=== PATIENT | male | born 1995 | race Two or more races ===

== ENCOUNTER 2024-10-02 08:22 | Inpatient (IN) | payer BC, OTHER ==
[~2024-10-02] VITALS: Ht 182.9 cm; Wt 94.2 kg
--- NOTE | 2024-10-02 08:51 | ED.PDOC ---
General HPI Comments This is a 29 year old male REINIER presenting to the ED with chief complaint of right flank pain. Patient reports that he has been experiencing right sided flank pain since this morning with associated nausea. Patient states he had experienced some hematuria about a month ago, but it self resolved. Patient denies any vomiting, dysuria, hematuria, fever, chills, or abdominal pain. Chief Complaint: Flank Pain Time Seen by MD: 08:51 Reviewed notes: Nurses Notes, Batch Attendant Notes, Medications, Allergies Allergies: Coded Allergies: NO KNOWN ALLERGIES (Unverified , 10/02/24) Information Source: Patient, Emergency Med Personnel Mode of Arrival: EMS Severity: Moderate Inability to void: None Timing: Hours Duration: Since onset Prehospital treatment: None Onset: Spontaneous History of: None Location: (R) Flank Penile discharge: None associated signs and symptoms: Flank Pain Past Medical History PAST MEDICAL HISTORY: Denies Surgical History: Denies all surgeries Family History Family History: Reviewed,noncontributory to illness Social History Smoker: Non-Smoker Alcohol: Denies ETOH Use Drugs: Denies Drug Use Lives In: Home Constitutional: denies: chills, diaphoresis, fatigue, fever, malaise, sweats, weakness, others EENTM: denies: blurred vision, double vision, ear bleeding, ear discharge, ear drainage, ear pain, ear ringing, eye pain, eye redness, hearing loss, mouth pain, mouth swelling, nasal discharge, nose bleeding, nose congestion, nose pain, photophobia, tearing, throat pain, throat swelling, voice changes, others Respiratory: denies: cough, hemoptysis, orthopnea, SOB at rest, shortness of breath, SOB with excertion, stridor, wheezing, others Cardiovascular: denies: chest pain, dizzy spells, diaphoresis, Dyspnea on exertion, edema, irregular heart beat, left arm pain, lightheadedness, palpitations, PND, syncope, others Gastrointestinal: reports: nausea; denies: abdomen distended, abdominal pain, blood streaked bowels, constipated, diarrhea, dysphagia, difficulty swallowing, hematemesis, melena, poor appetite, poor fluid intake, rectal bleeding, rectal pain, vomiting, others Genitourinary: reports: flank pain; denies: burning, dysuria, frequency, hematuria, incontinence, penile discharge, penile sore, pain, testicle pain, testicle swelling, urgency, others Neurological: denies: dizziness, fainting, headache, left sided numbness, left sided weakness, numbness, paresthesia, pre-existing deficit, right sided numbness, right sided weakness, seizure, speech problems, tingling, tremors, weakness, others Musculoskeletal: denies: back pain, gout, joint pain, joint swelling, muscle pain, muscle stiffness, neck pain, others Integumetry: denies: bruises, change in color, change in hair/nails, dryness, laceration, lesions, lumps, rash, wounds, others Allergic/Immunocompromised: denies: Difficulty Healing, Frequent Infections, Hives, Itching, others Hematologic/Lymphatic: denies: anemia, blood clots, easy bleeding, easy bruising, swollen glands, others Endocrine: denies: excessive hunger, excessive sweating, excessive thirst, excessive urination, flushing, intolerance to cold, intolerance to heat, unexplained weight gain, unexplained weight loss, others Psychiatric: denies: anxiety, bipolar disorder, depression, hopeless, panic disorder, schizophrenia, sleepless, suicidal, others All Other Systems: Reviewed and Negative Physical Exam General Appearance: Moderate Distress, Normal HEENT: Normal ENT Inspection, Pharynx Normal, TMs Normal Neck: Full Range of Motion, Non-Tender, Normal, Normal Inspection Respiratory: Chest Non-Tender, Lungs Clear, No Accessory Muscle Use, No Respiratory Distress, Normal Breath Sounds Cardiovascular: No Edema, No JVD, No Murmur, No Gallop, Normal Peripheral Pulses, Regular Rate/Rhythm Breast Exam: Deferred Gastrointestinal: No Organomegaly, Non Tender, No Pulsatile Mass, Normal Bowel Sounds, Soft Genitalia: Deferred Pelvic: Deferred Rectal: Deferred Extremities: No calf tenderness, Normal capillary refill, Normal inspection, Normal range of motion, Non-tender, No pedal edema Musculoskeletal : Apperance: Normal Neurologic: Alert, 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 Was a procedure done?: No Differential Diagnosis Kidney stone (Female): N/A Kidney stone (Male): Pyelonephritis, Renal failure, Strain, Urinary obstruction, Urolithiasis, Urinary tract infection X-Ray, Labs, Meds, VS Vital Signs Date Time Temp Pulse Resp B/P (MAP) Pulse Ox O2 Delivery O2 Flow Rate FiO2 10/02/24 09:11 74 20 95 Room Air* 0 21 10/02/24 08:34 98.9 68 14 120/78 100 98.9 Lab Test 10/02/24 08:54 10/02/24 08:46 Range/Units Urine Color Light-orange Yellow Urine Clarity Turbid H Clear Urine pH 5.5 5.0-9.0 Urine Specific [place] 1.027 1.001-1.035 Urine Protein 1+ H Negative Urine Ketones Negative Negative Urine Blood 3+ H Negative /uL Urine Nitrite Negative Negative Urine Bilirubin Negative Negative Urine Urobilinogen Normal Negative mg/dL Urine Leukocyte Esterase Trace Negative /uL Urine RBC 2435 0 - 3 /hpf Urine Microscopic WBC 16 H 0-3 /HPF Urine Squamous Epithelial Cells None seen <5 /hpf Urine Bacteria None seen None Seen /hpf Urine Mucus Few None Seen Urine Yeast (Budding) Moderate None Seen /hpf Urine Glucose Normal Normal mg/dL White Blood Count 10.0 4.4-10.8 10^3/uL Red Blood Count 5.31 4.5-5.90 10^6/uL Hemoglobin 16.2 13.5-17.5 g/dL Hematocrit 46.1 41.0-53.0 % Mean Corpuscular Volume 86.8 80.0-100.0 fL Mean Corpuscular Hemoglobin 30.4 28.0-32.0 pg Mean Corpuscular Hemoglobin Concent 35.1 32.0-36.0 g/dL Red Cell Distribution Width 13.1 11.8-14.3 % Platelet Count 278 140-450 10^3/uL Mean Platelet Volume 7.5 6.9-10.8 fL Neutrophils (%) (Auto) 62.6 37.0-80.0 % Lymphocytes (%) (Auto) 18.8 10.0-50.0 % Monocytes (%) (Auto) 4.1 0.0-12.0 % Eosinophils (%) (Auto) 14.2 H 0.0-7.0 % Basophils (%) (Auto) 0.3 0.0-2.0 % Neutrophils # (Auto) 6.3 1.6-8.6 10 ^3/uL Lymphocytes # (Auto) 1.9 0.4-5.4 10 ^3/uL Monocytes # (Auto) 0.4 0-1.3 10 ^3/uL Eosinophils # (Auto) 1.4 H 0-0.8 10 ^3/uL Basophils # (Auto) 0 0-0.2 10 ^3/uL Nucleated Red Blood Cells 0.1 % Sodium Level 142 136-145 mmol/L Potassium Level 4.3 3.5-5.1 mmol/L Chloride Level 106 98-107 mmol/L Carbon Dioxide Level 29 20-31 mmol/L Anion Gap 7 5-15 Blood Urea Nitrogen 13 9-23 mg/dL Creatinine 0.98 0.700-1.30 mg/dL Glomerular Filtration Rate Calc 107 >90 mL/min BUN/Creatinine Ratio 13.3 10.0-20.0 Serum Glucose 97 74-106 mg/dL Calcium Level 10.4 8.7-10.4 mg/dL Current Medications Medications (Trade) Dose Ordered Sig/Brayan Route Start Time Stop Time Status Last Admin Ondansetron HCl (Zofran) 4 mg ONCE ONCE IV 10/02/24 08:45 10/02/24 08:46 DC 10/02/24 09:09 Sodium Chloride 1,000 ml @ 1,000 mls/hr Q1H ONCE IVB 10/02/24 08:45 10/02/24 09:44 DC 10/02/24 09:10 Ketorolac Tromethamine (Toradol Injection) 30 mg ONCE ONCE IV 10/02/24 08:45 10/02/24 08:46 DC 10/02/24 09:09 Patient alert. Complaining of flank pain. Vitals stable. Answering questions. Urinalysis shows hematuria. Possible kidney stone. Establish intravenous access. Was given fluids. Was given pain medication. Was given Lasix pain Explained to the patient. Continue monitoring. Time of 1ST Reevaluation: 09:50 Reevaluation 1ST: Unchanged Patient Education/Counseling: Diagnosis, Treatment Family Education/Counseling: No Family Present SEPSIS Sepsis Screen Date sepsis recognized/suspect: Oct 02, 2024 Time Sepsis recognized/suspect: 824 Recent Procedure: No On Antibiotic Therapy: No Respiratory Rate >20: No Heart Rate >90: No Temp<36 C (96.8 F) or >38.3 C: No SBP <90 or MAP <65 mmHG: No New Acute Mental Status Change: No Is the patient on CPAP, BIPAP,: No Physician Orders Ct Ab Pel Wo Con-No Oral Or Iv (10/02/24 10:40) Vital Signs Date Time Temp Pulse Resp B/P (MAP) Pulse Ox O2 Delivery O2 Flow Rate FiO2 10/02/24 09:11 74 20 95 Room Air* 0 21 10/02/24 08:34 98.9 68 14 120/78 100 98.9 Laboratory Tests Test 10/02/24 08:46 White Blood Count 10.0 10^3/uL (4.4-10.8) Medications Medications Dose Ordered Sig/Brayan Route Start Time Stop Time Status Last Admin Dose Admin Ketorolac Tromethamine 30 mg ONCE ONCE IV 10/02/24 08:45 10/02/24 08:46 DC 10/02/24 09:09 Ondansetron HCl 4 mg ONCE ONCE IV 10/02/24 08:45 10/02/24 08:46 DC 10/02/24 09:09 Sodium Chloride 1,000 ml @ 1,000 mls/hr Q1H ONCE IVB 10/02/24 08:45 10/02/24 09:44 DC 10/02/24 09:10 Departure 1 Departure Time of Disposition: 10:52 Impression: Primary Impression: Kidney stone Disposition: ADMITTED INPATIENT Admit to: Med Surg Condition: Guarded Critical Care Note Critical Care Time?: Yes (90 min-critical care time only) Critical care comment: Monitoring pain Stability Stability form required: No Heart Score Heart Score: Heart Score Response (Comments) Value History N/A 0 EKG N/A 0 Age N/A 0 Risk Factors N/A 0 Troponin N/A 0 Total 0 I personally scribed for SUMAN PEREZ MD ([email or web address]) on 10/02/24 at 08:51. Electronically submitted by Kwaku Akbar ([email or web address]). SUMAN PEREZ MD Oct 02, 2024 08:51
[2024-10-02 09:08] LABS: Hematocrit 46.1 % (41.0-53.0); Hemoglobin 16.2 g/dL (13.5-17.5); Mean Corpuscular Hemoglobin 30.4 pg (28.0-32.0); Mean Corpuscular Volume 86.8 fL (80.0-100.0); Nucleated Red Blood Cells % 0.1 %
[2024-10-02] MEDS: ONDANSETRON HCL 4 MG/2 ML VIAL IV ONE (09:09)
[2024-10-02] MEDS: KETOROLAC TROMETH 30 MG/ML 1ML VIAL IV ONE ×2 (09:09→18:00)
[2024-10-02] MEDS: SODIUM CHLORIDE 0.9% 1,000 ML IVB ONE (09:10)
[2024-10-02 09:11] VITALS: PULSE 74; RESP 20; O2SAT 95
[2024-10-02 09:20] LABS: Chloride 106 mmol/L (98-107); Potassium 4.3 mmol/L (3.5-5.1); Sodium 142 mmol/L (136-145)
[2024-10-02 09:21] LABS: Anion Gap 7 (5-15); Calcium 10.4 mg/dL (8.7-10.4); Carbon Dioxide 29 mmol/L (20-31)
[2024-10-02 09:26] LABS: BUN/Creatinine Ratio 13.3 (10.0-20.0); Blood Urea Nitrogen 13 mg/dL (9-23); Glucose 97 mg/dL (74-106)
[2024-10-02 09:54] LABS: Urine Budding Yeast MODERATE /hpf (None Seen); Urine Protein, UAD 1+ (Negative)
--- NOTE | 2024-10-02 11:16 | DVH ---
CT CT AB PEL WO CON-NO ORAL OR IV INDICATION: stone EXAM DATE: 10/02/2024 10:40 AM COMPARISON: None RADIATION DOSE: CTDIvol: 11.76 mGy, DLP: 734.97 mGy*cm PROCEDURE: Helical CT images were obtained of the abdomen and pelvis without IV contrast Sagittal and coronal reconstructions are provided. ORAL CONTRAST: None. ADDITIONAL IMAGES / REFORMATS: None All C T scans at this medical facility are performed using dose modulation techniques as appropriate to a p erformed exam including the following: Automated exposure control was utilized; adjustment of the MA and/or KV according to patient size; and use of iterative reconstruction technique. FINDINGS: LUNG BASE: Normal. LIVER: Normal. GALLBLADDER AND BILIARY TREE: No calcified gallstones. Normal caliber wall. No intra- or extrahepatic biliary ductal dilation. PANCREAS: Normal. SPLEEN: Normal. BOWEL: Normal. Normal appendix. ADRENALS: Normal. KIDNEYS AND URETER: 7 mm right mid ureteral kidney stone with mild right hydronephrosis. Additional p unctate nonobstructive kidney stones are seen. BLADDER: Normal. REPRODUCTIVE ORGANS: Normal. LYMPH NODES:No lymphadenopathy. PERITONEUM: No ascites or free air. No other fluid collection. VESSELS: Normal RETROPERITONEUM: Normal. ABDOMINAL WALL: Normal. BONES: Normal IMPRESSION: 7 mm right mid ureteral kidney stone with mild right hydronephrosis. Additional punctate nonobstructi ve kidney stones are seen.
[2024-10-02] MEDS: FUROSEMIDE 20 MG/2 ML VIAL IV ONE (11:35)
--- NOTE | 2024-10-02 20:57 | DVHHP2 ---
Admitting Diagnosis: Flank pain right History of Present Illness This is a 29 year old male REINIER presenting to the ED with chief complaint of right flank pain. Patient reports that he has been experiencing right sided flank pain since this morning with associated nausea. Patient states he had experienced some hematuria about a month ago, but it self resolved. Patient denies any vomiting, dysuria, hematuria, fever, chills, or abdominal pain. PAST MEDICAL HISTORY: Denies Surgical History: Denies all surgeries Family History Family History: Reviewed,noncontributory to illness Social History Smoker: Non-Smoker Alcohol: Denies ETOH Use Drugs: Denies Drug Use Lives In: Home Allergies: Coded Allergies: NO KNOWN ALLERGIES (Unverified , 10/02/24) Current Medications Current Medications Medications (Trade) Dose Ordered Sig/Brayan Route PRN Reason Start Time Stop Time Status Last Admin Tamsulosin HCl (Flomax) 0.4 mg DAILY PO 10/02/24 21:00 UNV Ketorolac Tromethamine (Toradol Injection) 15 mg Q6HPRN PRN IV MODERATE PAIN (4-6 PAIN SCALE) 10/02/24 21:00 10/07/24 20:59 UNV Ceftriaxone Sodium 50 ml @ 100 mls/hr DAILY IV 10/02/24 21:00 UNV Sodium Chloride (Saline Lock Ns) 10 ml Q8HR IV 10/02/24 22:00 UNV Docusate Sodium (Colace Capsule) 100 mg BIDPRN PRN PO FOR CONSTIPATION 10/02/24 21:00 UNV Acetaminophen (Tylenol Tablet) 650 mg Q6HP PRN PO PAIN SCALE 1-3 OR TEMP>100.4 10/02/24 21:00 UNV Acetaminophen/ Hydrocodone Bitart ([place] 5/325MG Tab) 1 tab Q4HP PRN PO MODERATE PAIN (4-6 PAIN SCALE) 10/02/24 21:00 UNV Hydromorphone HCl (Dilaudid Injection) 0.5 mg Q4HP PRN IV SEVERE PAIN (7-10 PAIN SCALE) 10/02/24 21:00 UNV Ondansetron HCl (Zofran) 4 mg Q4HP PRN IV NAUSEA / VOMITING 10/02/24 21:00 UNV Vital Signs Vital Signs Date Time Temp Pulse Resp B/P (MAP) Pulse Ox O2 Delivery O2 Flow Rate FiO2 10/02/24 17:25 98.1 96 19 152/77 (102) 94 98.1 10/02/24 09:11 Room Air* 0 21 Physical Exam Generally-29 years old male, well nourished well developed. Moderate distress HEENT-atraumatic, normocephalic Heart-regular rate and rhythm Lungs clear to auscultate Abdomen soft nontender nondistended Musculoskeletal-no edema cyanosis Neuro-AO x three, no focal deficit SEPSIS Sepsis Screen Date sepsis recognized/suspect: Oct 02, 2024 Time Sepsis recognized/suspect: 824 Recent Procedure: No On Antibiotic Therapy: No Respiratory Rate >20: No Heart Rate >90: No Temp<36 C (96.8 F) or >38.3 C: No SBP <90 or MAP <65 mmHG: No New Acute Mental Status Change: No Is the patient on CPAP, BIPAP,: No Physician Orders Ct Ab Pel Wo Con-No Oral Or Iv (10/02/24 10:40) Tamsulosin Hydrochloride (Flomax) (10/02/24 21:00) * Urology Consult (10/02/24 20:50) Sodium Chloride 0.9% (10/02/24 21:00) Ketorolac Injection (Toradol Injection) (10/02/24 21:00) Comprehensive Metabolic Panel (10/03/24 05:00) Comprehensive Metabolic Panel (10/04/24 05:00) Comprehensive Metabolic Panel (10/05/24 05:00) Comprehensive Metabolic Panel (10/06/24 05:00) Comprehensive Metabolic Panel (10/07/24 05:00) Complete Blood Count (10/03/24 05:00) Complete Blood Count (10/04/24 05:00) Complete Blood Count (10/05/24 05:00) Complete Blood Count (10/06/24 05:00) Complete Blood Count (10/07/24 05:00) Ceftriaxone 1gm/50ml D5w (Rocephin) (10/02/24 21:00) Urine Bacterial Culture (10/02/24 20:50) Admit (10/02/24 20:50) Code Status (10/02/24 20:50) Vital Signs .PER UNIT PROTOCOL (10/02/24 20:50) Review Orders With Adm. (10/02/24 20:50) Encourage Activity As Tolerate (10/02/24 20:50) Npo (Nothing By Mouth) Diet (10/03/24 Breakfast) Sodium Chloride Lock (Saline Lock Ns) (10/02/24 22:00) Docusate Sodium Capsule (Colace Capsule) (10/02/24 21:00) Acetaminophen Tablet (Tylenol Tablet) (10/02/24 21:00) Notify Md Of Changes From Base (10/02/24 20:50) Advance Directive (10/02/24 20:50) Patient Condition (10/02/24 20:50) Allergies (10/02/24 20:50) Hydrocodone-Acet 5/325mg Tab ([place] 5/32 (10/02/24 21:00) Hydromorphone Injection (Dilaudid Inject (10/02/24 21:00) Ondansetron Hcl (Zofran) (10/02/24 21:00) Vital Signs Date Time Temp Pulse Resp B/P (MAP) Pulse Ox O2 Delivery O2 Flow Rate FiO2 10/02/24 17:25 98.1 96 19 152/77 (102) 94 98.1 10/02/24 14:20 65 16 136/68 (90) 97 10/02/24 11:35 125/71 10/02/24 11:35 98.4 65 18 125/71 (89) 96 98.4 10/02/24 09:11 74 20 95 Room Air* 0 21 10/02/24 08:34 98.9 68 14 120/78 100 98.9 Laboratory Tests Test 10/02/24 08:46 White Blood Count 10.0 10^3/uL (4.4-10.8) Medications Medications Dose Ordered Sig/Brayan Route Start Time Stop Time Status Last Admin Dose Admin Furosemide 20 mg ONCE ONCE IV 10/02/24 11:00 10/02/24 11:01 DC 10/02/24 11:35 Ketorolac Tromethamine 30 mg ONCE ONCE IV 10/02/24 17:30 10/02/24 17:31 DC 10/02/24 18:00 Results Labs Test 10/02/24 08:54 10/02/24 08:46 Range/Units Urine Color Light-orange Yellow Urine Clarity Turbid H Clear Urine pH 5.5 5.0-9.0 Urine Specific [place] 1.027 1.001-1.035 Urine Protein 1+ H Negative Urine Ketones Negative Negative Urine Blood 3+ H Negative /uL Urine Nitrite Negative Negative Urine Bilirubin Negative Negative Urine Urobilinogen Normal Negative mg/dL Urine Leukocyte Esterase Trace Negative /uL Urine RBC 2435 0 - 3 /hpf Urine Microscopic WBC 16 H 0-3 /HPF Urine Squamous Epithelial Cells None seen <5 /hpf Urine Bacteria None seen None Seen /hpf Urine Mucus Few None Seen Urine Yeast (Budding) Moderate None Seen /hpf Urine Glucose Normal Normal mg/dL White Blood Count 10.0 4.4-10.8 10^3/uL Red Blood Count 5.31 4.5-5.90 10^6/uL Hemoglobin 16.2 13.5-17.5 g/dL Hematocrit 46.1 41.0-53.0 % Mean Corpuscular Volume 86.8 80.0-100.0 fL Mean Corpuscular Hemoglobin 30.4 28.0-32.0 pg Mean Corpuscular Hemoglobin Concent 35.1 32.0-36.0 g/dL Red Cell Distribution Width 13.1 11.8-14.3 % Platelet Count 278 140-450 10^3/uL Mean Platelet Volume 7.5 6.9-10.8 fL Neutrophils (%) (Auto) 62.6 37.0-80.0 % Lymphocytes (%) (Auto) 18.8 10.0-50.0 % Monocytes (%) (Auto) 4.1 0.0-12.0 % Eosinophils (%) (Auto) 14.2 H 0.0-7.0 % Basophils (%) (Auto) 0.3 0.0-2.0 % Neutrophils # (Auto) 6.3 1.6-8.6 10 ^3/uL Lymphocytes # (Auto) 1.9 0.4-5.4 10 ^3/uL Monocytes # (Auto) 0.4 0-1.3 10 ^3/uL Eosinophils # (Auto) 1.4 H 0-0.8 10 ^3/uL Basophils # (Auto) 0 0-0.2 10 ^3/uL Nucleated Red Blood Cells 0.1 % Sodium Level 142 136-145 mmol/L Potassium Level 4.3 3.5-5.1 mmol/L Chloride Level 106 98-107 mmol/L Carbon Dioxide Level 29 20-31 mmol/L Anion Gap 7 5-15 Blood Urea Nitrogen 13 9-23 mg/dL Creatinine 0.98 0.700-1.30 mg/dL Glomerular Filtration Rate Calc 107 >90 mL/min BUN/Creatinine Ratio 13.3 10.0-20.0 Serum Glucose 97 74-106 mg/dL Calcium Level 10.4 8.7-10.4 mg/dL Primary Diagnosis Acute tract infection Right renal calculus with mild hydronephrosis Plan Start ceftriaxone 1 g q.day. Follow up with the urine culture IV fluids 150 cc an hour Tamsulosin small stone less than 1cm Urology consult regular diet Pain control Antiemetic Full code scd DVT prophylaxis No GI prophylaxis needed Plan discussed with: Patient Problems List: (1) UTI (urinary tract infection) (2) Kidney stone Status: Acute Date of Service: Oct 02, 2024 Billing Provider: ALIDA JONES MD Common Visit Codes: [id number] INP/OBS CARE (HIGH) ALIDA JONES MD Oct 02, 2024 20:57
[2024-10-02] MEDS ORDERED: DOCUSATE SOD 100 MG CAP PO PRN (21:00)
[2024-10-02] MEDS ORDERED: HYDROcodone-ACET 5/325MG TAB PO PRN (21:00)
[2024-10-02] MEDS ORDERED: ONDANSETRON HCL 4 MG/2 ML VIAL IV PRN (21:00)
[2024-10-02] MEDS ORDERED: ACETAMINOPHEN 325 MG TAB PO PRN (21:00)
[2024-10-02] MEDS ORDERED: HYDROmorphone HCL 2 MG/ML VL/or syr IV PRN (21:00)
[2024-10-02] MEDS: cefTRIAXone 1GM/50ML D5W 50 ML IV SCH (21:35)
[2024-10-02] MEDS: TAMSULOSIN HYDROCHLORIDE 0.4 MG CAP PO SCH (21:46)
[2024-10-02] MEDS: SODIUM CHLORIDE 0.9% 1,000 ML IV ONE (22:02)
[2024-10-02] MEDS: SODIUM CHLOR 0.9% PF (SALINE LOCK) 10ML VIAL/SYR IV SCH (22:03)
[2024-10-03 01:23] VITALS: BP 117/60; PULSE 60; RESP 15; TEMP 98.4; O2SAT 96
[2024-10-03] MEDS: KETOROLAC TROMETH 30 MG/ML 1ML VIAL IV PRN (02:11)
[2024-10-03 03:44] LABS: Hematocrit 41.3 % (41.0-53.0); Hemoglobin 14.5 g/dL (13.5-17.5); Mean Corpuscular Hemoglobin 30.2 pg (28.0-32.0); Mean Corpuscular Volume 86.3 fL (80.0-100.0); Nucleated Red Blood Cells % 0.2 %
[2024-10-03 03:56] LABS: Alanine Aminotransferase 15 U/L (7-40); Albumin 4.0 g/dL (3.2-4.8); Alkaline Phosphatase 56 U/L (46-116); Anion Gap 7 (5-15); BUN/Creatinine Ratio 16.7 (10.0-20.0); Bilirubin, Total 0.3 mg/dL (0.2-1.0); Blood Urea Nitrogen 15 mg/dL (9-23); Calcium 9.4 mg/dL (8.7-10.4); Carbon Dioxide 27 mmol/L (20-31); Glucose 85 mg/dL (74-106); Potassium 3.9 mmol/L (3.5-5.1); Sodium 142 mmol/L (136-145); Total Protein 6.0 g/dL (5.7-8.2)
[2024-10-03 03:59] LABS: Chloride 108 mmol/L (98-107)
[2024-10-03 04:48] VITALS: BP 100/51; PULSE 56; RESP 17; TEMP 97.7; O2SAT 97
[2024-10-03] MEDS ORDERED: MANNITOL 20% SOLN 100 gm/500ml 200 ML IV ONE (15:30)
[2024-10-03] MEDS: SODIUM CHLORIDE 0.9% 1,000 ML IV SCH (15:30)
[2024-10-03] MEDS: SODIUM CHLORIDE 0.9% 500 ML IV ONE (15:30)
--- NOTE | 2024-10-03 15:34 | DVHPN2 ---
Subjective Covering for [facility] today. Patient's chart is reviewed seen evaluated and discussed with the patient along with the nurse through [place] conciliator. Patient is still complains of intermittent right flank pain. Noted to have a 7 mm right ureteral stone stone. Changes from previous H/P or p: No Changes Objective Vitals Vital Signs Date Time Temp Pulse Resp B/P (MAP) Pulse Ox O2 Delivery O2 Flow Rate FiO2 10/03/24 04:48 97.7 56 17 100/51 (67) 97 97.7 10/02/24 09:11 Room Air* 0 21 Intake/Output Intake and Output 10/03/24 07:00 Intake Total 1000 ml Balance 1000 ml Intake IV Total 1000 ml Exam Alert awake oriented x3. Pain-free at present. HEENT neck supple no JVD pupils equal round react to light. Heart regular rate and rhythm S1-S2. Lungs fair air movement chest tube will expansion no rales wheezes. Abdomen is soft nontender positive bowel sounds. No flank tenderness noted to palpation at present. Extremities no edema positive pulses. Medications Current Medications Medications Dose Ordered Sig/Brayan Route Start Time Stop Time Status Last Admin Dose Admin Tamsulosin HCl 0.4 mg QPM PO 10/02/24 21:45 10/02/24 21:46 0.4 MG Ketorolac Tromethamine 15 mg Q6HPRN PRN IV 10/02/24 21:00 10/07/24 20:59 10/03/24 10:09 15 MG Ceftriaxone Sodium 50 ml @ 100 mls/hr DAILY IV 10/02/24 21:00 10/03/24 08:28 100 MLS/HR Sodium Chloride 10 ml Q8HR IV 10/02/24 22:00 10/03/24 14:10 10 ML Docusate Sodium 100 mg BIDPRN PRN PO 10/02/24 21:00 Acetaminophen 650 mg Q6HP PRN PO 10/02/24 21:00 Acetaminophen/ Hydrocodone Bitart 1 tab Q4HP PRN PO 10/02/24 21:00 Hydromorphone HCl 0.5 mg Q4HP PRN IV 10/02/24 21:00 Ondansetron HCl 4 mg Q4HP PRN IV 10/02/24 21:00 Laboratory Results Laboratory Tests 10/03/24 03:03 Chemistry Test 10/03/24 03:03 Albumin 4.0 g/dL (3.2-4.8) Calcium Level 9.4 mg/dL (8.7-10.4) Total Protein 6.0 g/dL (5.7-8.2) LFT Test 10/03/24 03:03 Alanine Aminotransferase (ALT) 15 U/L (7-40) Alkaline Phosphatase 56 U/L (46-116) Aspartate Amino Transferase (AST) 16 U/L (13-40) Total Bilirubin 0.3 mg/dL (0.2-1.0) Urinalysis Test 10/02/24 08:54 Urine Color Light-orange (Yellow) Urine Clarity Turbid (Clear) H Urine pH 5.5 (5.0-9.0) Urine Specific [place] 1.027 (1.001-1.035) Urine Protein 1+ (Negative) H Urine Ketones Negative (Negative) Urine Blood 3+ /uL (Negative) H Urine Nitrite Negative (Negative) Urine Bilirubin Negative (Negative) Urine Urobilinogen Normal mg/dL (Negative) Urine Leukocyte Esterase Trace /uL (Negative) Urine RBC 2435 /hpf (0 - 3) Urine Microscopic WBC 16 /HPF (0-3) H Urine Squamous Epithelial Cells None seen /hpf (<5) Urine Bacteria None seen /hpf (None Seen) Urine Mucus Few (None Seen) Urine Yeast (Budding) Moderate /hpf (None Seen) Urine Glucose Normal mg/dL (Normal) Microbiology Microbiology Date/Time Source Procedure Growth Status 10/02/24 08:54 Voided Urine Urine Culture - Preliminary Resulted Assessment/Plan Assessment/Plan I will start him on IV fluids. Give him a dose of Lasix for forced diuresis. Also start him on mannitol for renal diuresis. Urology consultation. Continue current pain medications and antibiotics. Strain urine for any stones. Otherwise further clinical management per his clinical course and recommendations from pending consultations. Discussed with the patient through aerobic conciliator regarding his diagnosis care plan. Plan discussed with: Patient, Other Problem List: (1) Right ureteral calculus (2) Kidney stone Date of Service: Oct 03, 2024 Billing Provider: DAKOTAH MENDEZ MD Common Visit Codes: [id number] INP/OBS CARE(MOD) DAKOTAH MENDEZ MD Oct 03, 2024 15:34
[2024-10-03] MEDS: MANNITOL 20% SOLN 100 gm/500ml 200 ML IV ONE (18:33)
[2024-10-03 20:00] VITALS: PULSE 74; RESP 19; O2SAT 98
[2024-10-03 21:00] VITALS: BP 142/89; PULSE 74; RESP 19; TEMP 98.4; O2SAT 98
[2024-10-03] MEDS: FUROSEMIDE 20 MG/2 ML VIAL IV ONE (21:35)
--- NOTE | 2024-10-03 23:16 | DVHINCON2 ---
Date of service: Oct 03, 2024 Referring Physician Hospitalist Reason for Consultation 7 mm right mid ureteral stone with mild hydronephrosis History of Present Illness Patient admitted to [facility] with right flank pain is found to have 7 mm right mid ureteral stone with mild hydronephrosis. 29 year old male REINIER presenting to the ED with chief complaint of right flank pain. Patient reports that he has been experiencing right sided flank pain since this morning with associated nausea. Patient states he had experienced some hematuria about a month ago, but it self resolved. Patient denies any vomiting, dysuria, hematuria, fever, chills, or abdominal pain. Chief Complaint: Flank Pain Reviewed notes: Nurses Notes, Control Clerk Food And Beverage Notes, Medications, Allergies Allergies: Coded Allergies: NO KNOWN ALLERGIES (Unverified , 10/02/24) Information Source: Patient, Emergency Med Personnel Mode of Arrival: EMS Severity: Moderate Inability to void: None Timing: Hours Duration: Since onset Prehospital treatment: None Onset: Spontaneous History of: None Location: (R) Flank Penile discharge: None associated signs and symptoms: Flank Pain Past Medical History Denies Past Surgical History Denies all surgeries Allergies: Coded Allergies: NO KNOWN ALLERGIES (Unverified , 10/02/24) Current Medications Current Medications Medications (Trade) Dose Ordered Sig/Brayan Route PRN Reason Start Time Stop Time Status Last Admin Sodium Chloride 1,000 ml @ 125 mls/hr Q8H IV 10/03/24 15:30 10/03/24 15:30 Review of Systems Constitutional: denies: chills, diaphoresis, fatigue, fever, malaise, sweats, weakness, others EENTM: denies: blurred vision, double vision, ear bleeding, ear discharge, ear drainage, ear pain, ear ringing, eye pain, eye redness, hearing loss, mouth pain, mouth swelling, nasal discharge, nose bleeding, nose congestion, nose pain, photophobia, tearing, throat pain, throat swelling, voice changes, others Respiratory: denies: cough, hemoptysis, orthopnea, SOB at rest, shortness of breath, SOB with excertion, stridor, wheezing, others Cardiovascular: denies: chest pain, dizzy spells, diaphoresis, Dyspnea on exertion, edema, irregular heart beat, left arm pain, lightheadedness, palpitations, PND, syncope, others Gastrointestinal: reports: nausea; denies: abdomen distended, abdominal pain, blood streaked bowels, constipated, diarrhea, dysphagia, difficulty swallowing, hematemesis, melena, poor appetite, poor fluid intake, rectal bleeding, rectal pain, vomiting, others Genitourinary: reports: flank pain; denies: burning, dysuria, frequency, hematuria, incontinence, penile discharge, penile sore, pain, testicle pain, testicle swelling, urgency, others Neurological: denies: dizziness, fainting, headache, left sided numbness, left sided weakness, numbness, paresthesia, pre-existing deficit, right sided numbness, right sided weakness, seizure, speech problems, tingling, tremors, weakness, others Musculoskeletal: denies: back pain, gout, joint pain, joint swelling, muscle pain, muscle stiffness, neck pain, others Integumetry: denies: bruises, change in color, change in hair/nails, dryness, laceration, lesions, lumps, rash, wounds, others Allergic/Immunocompromised: denies: Difficulty Healing, Frequent Infections, Hives, Itching, others Hematologic/Lymphatic: denies: anemia, blood clots, easy bleeding, easy bruising, swollen glands, others Endocrine: denies: excessive hunger, excessive sweating, excessive thirst, excessive urination, flushing, intolerance to cold, intolerance to heat, unexplained weight gain, unexplained weight loss, others Psychiatric: denies: anxiety, bipolar disorder, depression, hopeless, panic disorder, schizophrenia, sleepless, suicidal, others All Other Systems: Reviewed and Negative Vital Signs Vital Signs Date Time Temp Pulse Resp B/P (MAP) Pulse Ox O2 Delivery O2 Flow Rate FiO2 10/03/24 21:35 142/89 10/03/24 18:15 Room Air* 0 21 10/03/24 04:48 97.7 56 17 97 97.7 Physical Exam General Appearance: Moderate Distress, Normal HEENT: Normal ENT Inspection, Pharynx Normal, TMs Normal Neck: Full Range of Motion, Non-Tender, Normal, Normal Inspection Respiratory: Chest Non-Tender, Lungs Clear, No Accessory Muscle Use, No Respiratory Distress, Normal Breath Sounds Cardiovascular: No Edema, No JVD, No Murmur, No Gallop, Normal Peripheral Pulses, Regular Rate/Rhythm Breast Exam: Deferred Gastrointestinal: No Organomegaly, Non Tender, No Pulsatile Mass, Normal Bowel Sounds, Soft Genitalia: Deferred Pelvic: Deferred Rectal: Deferred Extremities: No calf tenderness, Normal capillary refill, Normal inspection, Normal range of motion, Non-tender, No pedal edema Musculoskeletal : Apperance: Normal Neurologic: Alert, delivery table operator II-XII nml as Tested, No Motor Deficits, Normal Affect, Normal Mood, No Sensory Deficits Cerebellar Function: Normal Reflexes: Normal Skin: Dry, Normal Color, Warm Peripheral Pulses: 3+ Radial (R), 3+ Radial (L) Lymphatic: No Adenopathy Labs/Diagnostic Data Labs Test 10/03/24 03:03 10/02/24 08:54 Range/Units White Blood Count 11.0 H 4.4-10.8 10^3/uL Red Blood Count 4.79 4.5-5.90 10^6/uL Hemoglobin 14.5 13.5-17.5 g/dL Hematocrit 41.3 # 41.0-53.0 % Mean Corpuscular Volume 86.3 80.0-100.0 fL Mean Corpuscular Hemoglobin 30.2 28.0-32.0 pg Mean Corpuscular Hemoglobin Concent 35.0 32.0-36.0 g/dL Red Cell Distribution Width 13.3 11.8-14.3 % Platelet Count 247 140-450 10^3/uL Mean Platelet Volume 7.7 6.9-10.8 fL Neutrophils (%) (Auto) 57.9 37.0-80.0 % Lymphocytes (%) (Auto) 24.0 10.0-50.0 % Monocytes (%) (Auto) 5.2 0.0-12.0 % Eosinophils (%) (Auto) 12.5 H 0.0-7.0 % Basophils (%) (Auto) 0.4 0.0-2.0 % Neutrophils # (Auto) 6.3 1.6-8.6 10 ^3/uL Lymphocytes # (Auto) 2.6 0.4-5.4 10 ^3/uL Monocytes # (Auto) 0.6 0-1.3 10 ^3/uL Eosinophils # (Auto) 1.4 H 0-0.8 10 ^3/uL Basophils # (Auto) 0 0-0.2 10 ^3/uL Nucleated Red Blood Cells 0.2 % Sodium Level 142 136-145 mmol/L Potassium Level 3.9 3.5-5.1 mmol/L Chloride Level 108 H 98-107 mmol/L Carbon Dioxide Level 27 20-31 mmol/L Anion Gap 7 5-15 Blood Urea Nitrogen 15 9-23 mg/dL Creatinine 0.90 0.700-1.30 mg/dL Glomerular Filtration Rate Calc 119 >90 mL/min BUN/Creatinine Ratio 16.7 10.0-20.0 Serum Glucose 85 74-106 mg/dL Calcium Level 9.4 8.7-10.4 mg/dL Total Bilirubin 0.3 0.2-1.0 mg/dL Aspartate Amino Transferase (AST) 16 13-40 U/L Alanine Aminotransferase (ALT) 15 7-40 U/L Alkaline Phosphatase 56 46-116 U/L Total Protein 6.0 5.7-8.2 g/dL Albumin 4.0 3.2-4.8 g/dL Urine Color Light-orange Yellow Urine Clarity Turbid H Clear Urine pH 5.5 5.0-9.0 Urine Specific [place] 1.027 1.001-1.035 Urine Protein 1+ H Negative Urine Ketones Negative Negative Urine Blood 3+ H Negative /uL Urine Nitrite Negative Negative Urine Bilirubin Negative Negative Urine Urobilinogen Normal Negative mg/dL Urine Leukocyte Esterase Trace Negative /uL Urine RBC 2435 0 - 3 /hpf Urine Microscopic WBC 16 H 0-3 /HPF Urine Squamous Epithelial Cells None seen <5 /hpf Urine Bacteria None seen None Seen /hpf Urine Mucus Few None Seen Urine Yeast (Budding) Moderate None Seen /hpf Urine Glucose Normal Normal mg/dL Microbiology Date/Time Source Procedure Growth Status 10/02/24 08:54 Voided Urine Urine Culture - Preliminary Resulted PATIENT: JIM NIEVES ACCT: [id number] UNIT: [id number] : 1995 LOC: ER ROOM / BED: / AGE / SEX: 29 / M ADM STATUS: REG ER SERVICE 1040 ORDERING PHYSICIAN: SUMAN PEREZ MD PROCEDURE(s): ABPL - CT AB PEL WO CON-NO ORAL OR IV REASON: stone ORDER NUMBER(s): [id number], ACCESSION NUMBER(s): [id number] CT CT AB PEL WO CON-NO ORAL OR IV INDICATION: stone EXAM DATE: 10/02/2024 10:40 AM COMPARISON: None RADIATION DOSE: CTDIvol: 11.76 mGy, DLP: 734.97 mGy*cm PROCEDURE: Helical CT images were obtained of the abdomen and pelvis without IV contrast Sagittal and coronal reconstructions are provided. ORAL CONTRAST: None. ADDITIONAL IMAGES / REFORMATS: None All CT scans at this medical facility are performed using dose modulation techniques as appropriate to a performed exam including the following: Automated exposure control was utilized; adjustment of the MA and/or KV according to patient size; and use of iterative reconstruction technique. FINDINGS: LUNG BASE: Normal. LIVER: Normal. GALLBLADDER AND BILIARY TREE: No calcified gallstones. Normal caliber wall. No intra- or extrahepatic biliary ductal dilation. PANCREAS: Normal. SPLEEN: Normal. BOWEL: Normal. Normal appendix. ADRENALS: Normal. KIDNEYS AND URETER: 7 mm right mid ureteral kidney stone with mild right hydronephrosis. Additional punctate nonobstructive kidney stones are seen. BLADDER: Normal. REPRODUCTIVE ORGANS: Normal. LYMPH NODES:No lymphadenopathy. PERITONEUM: No ascites or free air. No other fluid collection. VESSELS: Normal RETROPERITONEUM: Normal. ABDOMINAL WALL: Normal. BONES: Normal IMPRESSION: 7 mm right mid ureteral kidney stone with mild right hydronephrosis. Additional punctate nonobstructive kidney stones are seen. ATED BY: MATTHEW SAMUELS MD DICTATED DATE/TIME: 10/02/24 111 SIGNED BY: MATTHEW SAMUELS MD SIGNED DATE/TIME: 10/02/24 111 CC: Assessment 7 mm right mid ureteral stone Mild right hydronephrosis Right flank pain Plan/Recommendation Expulsive measures Left ESWL vs.URSLL with stent placement TBA Plan discussed with: Patient, Other AL JONES MD Oct 03, 2024 23:16
[2024-10-04] VITALS (8 sets, daily range): BP systolic 98–130; BP diastolic 46–77; PULSE 20–71; RESP 14–20; TEMP 97.6–98.4; O2SAT 95–99
[2024-10-04 06:35] LABS: Hematocrit 40.6 % (41.0-53.0); Hemoglobin 14.5 g/dL (13.5-17.5); Mean Corpuscular Hemoglobin 30.7 pg (28.0-32.0); Mean Corpuscular Volume 86.0 fL (80.0-100.0)
[2024-10-04 06:55] LABS: Alanine Aminotransferase 14 U/L (7-40); Alkaline Phosphatase 58 U/L (46-116); Anion Gap 10 (5-15); BUN/Creatinine Ratio 16.2 (10.0-20.0); Blood Urea Nitrogen 16 mg/dL (9-23); Calcium 9.1 mg/dL (8.7-10.4); Carbon Dioxide 27 mmol/L (20-31); Chloride 106 mmol/L (98-107); Glucose 78 mg/dL (74-106); Potassium 3.9 mmol/L (3.5-5.1); Sodium 143 mmol/L (136-145); Total Protein 6.0 g/dL (5.7-8.2)
[2024-10-04 06:56] LABS: Albumin 4.0 g/dL (3.2-4.8)
[2024-10-04 06:57] LABS: Bilirubin, Total 0.5 mg/dL (0.2-1.0)
[2024-10-04 07:47] LABS: Total Cells Counted 100.0 (100)
--- NOTE | 2024-10-04 12:24 | DVHPN2 ---
Progress Note - Dictate Date Seen: Oct 04, 2024 Has the PT tested + for MRSA If YES, has PT been informed?: No Medical Necessity Reason Pt with a Central, PICC or Fol: No Medical Necessity Reason 7 mm right mid ureteral stone with minimal hydronephrosis Subjective Has not passed the stone. Pain is mild vital signs Vital Sign Date Time Temp Pulse Resp B/P (MAP) Pulse Ox O2 Delivery O2 Flow Rate FiO2 10/04/24 09:00 98.2 50 14 104/64 (77) 97 98.2 10/04/24 07:30 Room Air* 0 21 Total Intake and Output 10/03/24 10/03/24 10/04/24 15:00 23:00 07:00 Intake Total 1650 ml Output Total 650 ml Balance 1000 ml medications Current Medications Medications Dose Ordered Sig/Brayan Route Start Time Stop Time Status Last Admin Dose Admin Tamsulosin HCl 0.4 mg QPM PO 10/02/24 21:45 10/03/24 17:29 0.4 MG Ketorolac Tromethamine 15 mg Q6HPRN PRN IV 10/02/24 21:00 10/07/24 20:59 10/03/24 18:04 15 MG Ceftriaxone Sodium 50 ml @ 100 mls/hr DAILY IV 10/02/24 21:00 10/04/24 09:28 100 MLS/HR Sodium Chloride 10 ml Q8HR IV 10/02/24 22:00 10/04/24 06:10 10 ML Docusate Sodium 100 mg BIDPRN PRN PO 10/02/24 21:00 Acetaminophen 650 mg Q6HP PRN PO 10/02/24 21:00 Acetaminophen/ Hydrocodone Bitart 1 tab Q4HP PRN PO 10/02/24 21:00 Hydromorphone HCl 0.5 mg Q4HP PRN IV 10/02/24 21:00 Ondansetron HCl 4 mg Q4HP PRN IV 10/02/24 21:00 Sodium Chloride 1,000 ml @ 125 mls/hr Q8H IV 10/03/24 15:30 10/04/24 06:11 125 MLS/HR objective NAD laboratory and microbiology Laboratory Tests 10/04/24 05:12 Test 10/04/24 05:12 Range/Units Serum Glucose 78 74-106 mg/dL Problem List 7 mm right mid ureteral stone Assessment/Plan continue with expulsive measures Renal US with checking for ureteral jet Plan for right URSLL and stent placement tomorrow NPO after midnight Plan discussed with: Patient AL JONES MD Oct 04, 2024 12:24
--- NOTE | 2024-10-04 14:01 | DVH ---
EXAM: US KIDNEY INDICATION: miild right hydronephrosis TECHNIQUE: Multiple real-time sonographic images of the kidneys and bladder were obtained. COMPARISON: None Findings: Right kidney measures 10.7 cm with normal contours, echotexture, and cortical thickness. Mild hydrone phrosis. No evidence of calculi, cystic or solid lesions. Left kidney measures 12.7 cm with normal contours, echotexture, and cortical thickness. No evidence o f hydronephrosis, calculi, cystic or solid lesions. Urinary bladder is unremarkable without evidence of abnormal wall thickening, mass, or calculi. Prevo id volume 42.7 mL. Postvoid volume not obtained. Bilateral ureteral jets are appreciated. Impression: 1. Unremarkable sonographic study of the left kidney and urinary bladder. 2. Mild right hydronephrosis. 3. Bilateral ureteral jets are appreciated.
--- NOTE | 2024-10-04 20:06 | DVHPN2 ---
Subjective And evaluated earlier today and discussed with the patient through he is relative we will he is able to speak. Patient's he has no pain since this morning. Not sure if he passed any stone. Changes from previous H/P or p: No Changes Objective Vitals Vital Signs Date Time Temp Pulse Resp B/P (MAP) Pulse Ox O2 Delivery O2 Flow Rate FiO2 10/04/24 17:00 98.2 56 16 130/77 (94) 98 98.2 10/04/24 07:30 Room Air* 0 21 Intake/Output Intake and Output 10/04/24 07:00 Intake Total 1650 ml Output Total 650 ml Balance 1000 ml Intake Oral 650 ml IV Total 1000 ml Output Urine Total 650 ml # Voids 10 Exam Alert awake oriented x3. Pain-free at present. HEENT neck supple no JVD pupils equal round react to light. Heart regular rate and rhythm S1-S2. Lungs fair air movement chest tube will expansion no rales wheezes. Abdomen is soft nontender positive bowel sounds. No flank tenderness noted to palpation at present. Extremities no edema positive pulses. Medications Current Medications Medications Dose Ordered Sig/Brayan Route Start Time Stop Time Status Last Admin Dose Admin Tamsulosin HCl 0.4 mg QPM PO 10/02/24 21:45 10/04/24 16:42 0.4 MG Ketorolac Tromethamine 15 mg Q6HPRN PRN IV 10/02/24 21:00 10/07/24 20:59 10/03/24 18:04 15 MG Ceftriaxone Sodium 50 ml @ 100 mls/hr DAILY IV 10/02/24 21:00 10/04/24 09:28 100 MLS/HR Sodium Chloride 10 ml Q8HR IV 10/02/24 22:00 10/04/24 16:23 10 ML Docusate Sodium 100 mg BIDPRN PRN PO 10/02/24 21:00 Acetaminophen 650 mg Q6HP PRN PO 10/02/24 21:00 Acetaminophen/ Hydrocodone Bitart 1 tab Q4HP PRN PO 10/02/24 21:00 Hydromorphone HCl 0.5 mg Q4HP PRN IV 10/02/24 21:00 Ondansetron HCl 4 mg Q4HP PRN IV 10/02/24 21:00 Sodium Chloride 1,000 ml @ 125 mls/hr Q8H IV 10/03/24 15:30 8/3/25 06:11 125 MLS/HR Laboratory Results Laboratory Tests 10/04/24 05:12 Chemistry Test 10/04/24 05:12 Albumin 4.0 g/dL (3.2-4.8) Calcium Level 9.1 mg/dL (8.7-10.4) Total Protein 6.0 g/dL (5.7-8.2) LFT Test 10/04/24 05:12 Alanine Aminotransferase (ALT) 14 U/L (7-40) Alkaline Phosphatase 58 U/L (46-116) Aspartate Amino Transferase (AST) 13 U/L (13-40) Total Bilirubin 0.5 mg/dL (0.2-1.0) Urinalysis Test 10/02/24 08:54 Urine Color Light-orange (Yellow) Urine Clarity Turbid (Clear) H Urine pH 5.5 (5.0-9.0) Urine Specific [place] 1.027 (1.001-1.035) Urine Protein 1+ (Negative) H Urine Ketones Negative (Negative) Urine Blood 3+ /uL (Negative) H Urine Nitrite Negative (Negative) Urine Bilirubin Negative (Negative) Urine Urobilinogen Normal mg/dL (Negative) Urine Leukocyte Esterase Trace /uL (Negative) Urine RBC 2435 /hpf (0 - 3) Urine Microscopic WBC 16 /HPF (0-3) H Urine Squamous Epithelial Cells None seen /hpf (<5) Urine Bacteria None seen /hpf (None Seen) Urine Mucus Few (None Seen) Urine Yeast (Budding) Moderate /hpf (None Seen) Urine Glucose Normal mg/dL (Normal) Microbiology Microbiology Date/Time Source Procedure Growth Status 10/02/24 08:54 Voided Urine Urine Culture - Preliminary Resulted Assessment/Plan Assessment/Plan We will continue current IV fluids and pain medications. Continue rest strain urine. If patient does not pass the stone overnight and has any recurrent pain he may need lithotripsy. Urology consultation obtained yesterday. Further clinical management per clinical course and recommendations from the urologist. Discussed with the patient through maltese internet consultant over the phone regarding care plan. Plan discussed with: Patient, Other Problem List: (1) Right ureteral calculus (2) Kidney stone Date of Service: Oct 04, 2024 Billing Provider: DAKOTAH MENDEZ MD Common Visit Codes: [id number] INP/OBS CARE(MOD) DAKOTAH MENDEZ MD Oct 04, 2024 20:06
[2024-10-05] VITALS (10 sets, daily range): BP systolic 97–142; BP diastolic 52–89; PULSE 52–83; RESP 11–20; TEMP 96.2–98.6; O2SAT 95–100
[2024-10-05 07:25] LABS: Hematocrit 41.0 % (41.0-53.0); Hemoglobin 14.3 g/dL (13.5-17.5); Mean Corpuscular Hemoglobin 30.2 pg (28.0-32.0); Mean Corpuscular Volume 86.7 fL (80.0-100.0)
[2024-10-05 07:39] LABS: INR 1.04 (0.9-1.15); Partial Thromboplastin Time 28.7 SEC (24.5-34.5); Prothrombin Time 11.0 sec (9.3-11.8)
[2024-10-05 07:40] LABS: Alanine Aminotransferase 12 U/L (7-40); Alkaline Phosphatase 57 U/L (46-116); Anion Gap 9 (5-15); BUN/Creatinine Ratio 14.6 (10.0-20.0); Blood Urea Nitrogen 14 mg/dL (9-23); Calcium 9.1 mg/dL (8.7-10.4); Carbon Dioxide 27 mmol/L (20-31); Glucose 79 mg/dL (74-106); Potassium 3.8 mmol/L (3.5-5.1); Sodium 143 mmol/L (136-145); Total Protein 6.0 g/dL (5.7-8.2)
[2024-10-05 07:41] LABS: Albumin 4.1 g/dL (3.2-4.8); Bilirubin, Total 0.4 mg/dL (0.2-1.0); Chloride 107 mmol/L (98-107)
[2024-10-05 08:19] LABS: Total Cells Counted 100.0 (100)
--- NOTE | 2024-10-05 14:10 | DVHPN2 ---
Subjective Clinically stable. Evaluated by Urology and scheduled for ureteral stone lithotripsy procedure for this afternoon. Changes from previous H/P or p: No Changes Objective Vitals Vital Signs Date Time Temp Pulse Resp B/P (MAP) Pulse Ox O2 Delivery O2 Flow Rate FiO2 10/05/24 13:00 98.6 60 15 107/66 (80) 100 98.6 10/05/24 07:30 Room Air* 0 21 Intake/Output Intake and Output 10/05/24 07:00 Intake Total 2090 ml Output Total 350 ml Balance 1740 ml Intake Oral 1040 ml IV Total 1050 ml Output Urine Total 350 ml # Voids 2 # Bowel Movements 1 Exam Alert awake oriented x3. Pain-free at present. HEENT neck supple no JVD pupils equal round react to light. Heart regular rate and rhythm S1-S2. Lungs fair air movement chest tube will expansion no rales wheezes. Abdomen is soft nontender positive bowel sounds. No flank tenderness noted to palpation at present. Extremities no edema positive pulses. Medications Current Medications Medications Dose Ordered Sig/Brayan Route Start Time Stop Time Status Last Admin Dose Admin Tamsulosin HCl 0.4 mg QPM PO 10/02/24 21:45 10/04/24 16:42 0.4 MG Ketorolac Tromethamine 15 mg Q6HPRN PRN IV 10/02/24 21:00 10/07/24 20:59 10/05/24 04:59 15 MG Ceftriaxone Sodium 50 ml @ 100 mls/hr DAILY IV 10/02/24 21:00 10/05/24 08:25 100 MLS/HR Sodium Chloride 10 ml Q8HR IV 10/02/24 22:00 10/05/24 04:54 10 ML Docusate Sodium 100 mg BIDPRN PRN PO 10/02/24 21:00 Acetaminophen 650 mg Q6HP PRN PO 10/02/24 21:00 Acetaminophen/ Hydrocodone Bitart 1 tab Q4HP PRN PO 10/02/24 21:00 Hydromorphone HCl 0.5 mg Q4HP PRN IV 10/02/24 21:00 Ondansetron HCl 4 mg Q4HP PRN IV 10/02/24 21:00 Sodium Chloride 1,000 ml @ 125 mls/hr Q8H IV 10/03/24 15:30 10/05/24 06:26 125 MLS/HR Laboratory Results Laboratory Tests 10/05/24 05:21 Chemistry Test 10/05/24 05:21 Albumin 4.1 g/dL (3.2-4.8) Calcium Level 9.1 mg/dL (8.7-10.4) Total Protein 6.0 g/dL (5.7-8.2) Coagulation Test 10/05/24 05:21 Prothrombin Time 11.0 sec (9.3-11.8) Prothrombin Time INR 1.04 (0.9-1.15) Activated Partial Thromboplast Time 28.7 SEC (24.5-34.5) LFT Test 10/05/24 05:21 Alanine Aminotransferase (ALT) 12 U/L (7-40) Alkaline Phosphatase 57 U/L (46-116) Aspartate Amino Transferase (AST) 15 U/L (13-40) Total Bilirubin 0.4 mg/dL (0.2-1.0) Urinalysis Test 10/02/24 08:54 Urine Color Light-orange (Yellow) Urine Clarity Turbid (Clear) H Urine pH 5.5 (5.0-9.0) Urine Specific [place] 1.027 (1.001-1.035) Urine Protein 1+ (Negative) H Urine Ketones Negative (Negative) Urine Blood 3+ /uL (Negative) H Urine Nitrite Negative (Negative) Urine Bilirubin Negative (Negative) Urine Urobilinogen Normal mg/dL (Negative) Urine Leukocyte Esterase Trace /uL (Negative) Urine RBC 2435 /hpf (0 - 3) Urine Microscopic WBC 16 /HPF (0-3) H Urine Squamous Epithelial Cells None seen /hpf (<5) Urine Bacteria None seen /hpf (None Seen) Urine Mucus Few (None Seen) Urine Yeast (Budding) Moderate /hpf (None Seen) Urine Glucose Normal mg/dL (Normal) Microbiology Microbiology Date/Time Source Procedure Growth Status 10/02/24 08:54 Voided Urine Urine Culture - Final Complete Assessment/Plan Assessment/Plan We will continue current IV fluids and pain medications. Continue rest strain urine. Proceed with a lithotripsy and plan surgery for Urology today. Further clinical management per clinical course and recommendations from the urologist Plan discussed with: Patient, Other Problem List: (1) Kidney stone (2) Right ureteral calculus Date of Service: Oct 05, 2024 Billing Provider: DAKOTAH MENDEZ MD Common Visit Codes: [id number] INP/OBS CARE(LOW) DAKOTAH MENDEZ MD Oct 05, 2024 14:09
[2024-10-05] MEDS ORDERED: CIPROFLOXACIN 400MG/200ML 200 ML IV ONE (14:26)
[2024-10-05] MEDS ORDERED: ONDANSETRON HCL 4 MG/2 ML VIAL ONE (14:31)
[2024-10-05] MEDS ORDERED: SODIUM CHLORIDE LOCK 20 ML ONE (14:31)
[2024-10-05] MEDS ORDERED: MIDAZOLAM HCL 2MG/2ML 2ml VIAL (1mg/ml) ONE (14:31)
[2024-10-05] MEDS ORDERED: PROPOFOL 10 MG/ML 20 ML IV ONE (14:31)
[2024-10-05] MEDS ORDERED: LIDOCAINE 1% INJ PF 5ML AMP ONE (14:31)
[2024-10-05] MEDS ORDERED: fentaNYL CITRATE 100 MCG/2 ML VL ONE ×2 (14:31→19:15)
[2024-10-05] MEDS ORDERED: LIDOCAINE HCL 2% TOP JELLY 5ML TOP ONE (14:31)
[2024-10-05] MEDS ORDERED: KETAMINE 50mg/ML 1ml syringe ONE (14:31)
[2024-10-05] MEDS ORDERED: MORPHINE SULFATE INJ 2 MG/ml SYRG IV PRN (18:00)
[2024-10-05] MEDS ORDERED: HYDROmorphone HCL 2 MG/ML VL/or syr IV PRN ×2 (18:00)
[2024-10-05] MEDS ORDERED: METOCLOPRAMIDE HCL 5MG/ml INJ 2ml VIAL IV ONE (18:00)
[2024-10-05] MEDS ORDERED: KETOROLAC TROMETH 30 MG/ML 1ML VIAL IV ONE (18:00)
[2024-10-05] MEDS ORDERED: IOHEXOL 300 MG/ML 100ML BOTTLE IJ ONE (18:13)
--- NOTE | 2024-10-05 19:37 | DVHNC2 ---
Procedure - OPERATIVE REPORT Pre-op. Diagnosis: Ureteral stone - Right, mid ureteral 6 mm stone Post-op. Diagnosis: Same as pre-op diagnosis Operation: Right ureteroscopy/pyeloscopy, laser lithotripsy Cystoscopy with right ureteral stent placement Anesthesia: General Indications: Patient with 6 mm right ureteral stone, mild hydronephrosis, and right flank pain. The indications, risks, complications, alternatives and benefits were discussed. All questions were encouraged and answered. Patient is aware of risks/complications including but not limited to infection, bleeding, persistent pain, possible ureteral injury/ureteral stricture requiring additional surgical management, urethral injury, urethral stricture and meatal stenosis. Details of Procedure: After obtaining the consent, patient was taken to OR suite and underwent general anesthesia. Preop antibiotic was given. Timeout was performed and deemed to be correct. With the patient positioned in the lithotomy, the area of the genitalia prepped and draped in usual sterile fashion. 22 F Cystoscope was used to access the urethra and bladder. A sensor tip guide wire was advanced through the scope into the right ureter all the way to the right collecting system under fluoroscopic control. 11x13 Fr 36 cm access sheet over the working wire all the way to the proximal ureter under fluoroscopy control was placed. The flexible ureteroscope was advanced through the access sheet. The stone was visualized. Now using a 200 micron laser fiber the stone was blasted into small fragments. At this point the ureteroscope was advanced into the kidney and the kidney was examined and small stone fragments were visualized and fragmented with laser. No further stones were seen in the kidney. Then Antegrade ureteroscopy was performed and the entire length of the right ureter was examined and no further stones were seen. At this point the cystoscope was advanced over the wire into the bladder. Now a 6 Fr x [address] ureteral stent was advanced under direct visualization through the right ureteral orifice into the kidney. Good proximal curl was seen in the renal pelvis under fluoroscopy. Patient was placed in supine position in the OR table. Anesthesia was reversed, patient was extubated and transferred awake and in stable conditions to recovery room. Specimens: None Complications: None Findings: Right ureteral stone fragmented Notes: 6 Fr x [address] ureteral stent - Right KUB in 2 weeks AL JONES MD Oct 05, 2024 19:36
[2024-10-05] MEDS: MORPHINE SULFATE 4 MG/ML SYR/VIAL IV PRN (20:54)
[2024-10-06] VITALS (7 sets, daily range): BP systolic 99–155; BP diastolic 47–90; PULSE 51–65; RESP 16–20; TEMP 96.7–98.2; O2SAT 98–100
--- NOTE | 2024-10-06 00:37 | DVH ---
INDICATION: LASER LITHO W/ RIGHT STENT TECHNIQUE: Multiple views of the abdomen were obtained. COMPARISON: CT CT AB PEL WO CON-NO ORAL OR IV on DOS: 10/02/24 FINDINGS: Multiple fluoroscopic images demonstrating retrograde opacification of the unilateral upper urinary t ract, laterality not provided on image acquisition but labeled right . A ureteral stent is in positi on on the final images. No obvious filling defect or extraluminal contrast. Total time: 192.4 Total dose: 36.9 Number of images: 7 IMPRESSION: 1. Procedural fluoroscopic support as above. A radiologist was not present for image acquisition. C specialist clinical note for details.
[2024-10-06 10:44] LABS: Hematocrit 44.7 % (41.0-53.0); Hemoglobin 15.4 g/dL (13.5-17.5); Mean Corpuscular Hemoglobin 30.2 pg (28.0-32.0); Mean Corpuscular Volume 87.4 fL (80.0-100.0); Nucleated Red Blood Cells % 0.0 %
[2024-10-06 10:58] LABS: Alanine Aminotransferase 11 U/L (7-40); Albumin 4.7 g/dL (3.2-4.8); Alkaline Phosphatase 63 U/L (46-116); Anion Gap 9 (5-15); BUN/Creatinine Ratio 15.2 (10.0-20.0); Blood Urea Nitrogen 14 mg/dL (9-23); Calcium 9.8 mg/dL (8.7-10.4); Carbon Dioxide 27 mmol/L (20-31); Chloride 104 mmol/L (98-107); Glucose 90 mg/dL (74-106); Potassium 4.1 mmol/L (3.5-5.1); Sodium 140 mmol/L (136-145); Total Protein 7.0 g/dL (5.7-8.2)
[2024-10-06 10:59] LABS: Bilirubin, Total 0.4 mg/dL (0.2-1.0)
[2024-10-06] MEDS ORDERED: ACET-1304 PO (13:44)
--- NOTE | 2024-10-06 13:46 | DVHDS2 ---
Discharge Summary Date of Admission Oct 02, 2024 at 20:50 Date of Discharge: Oct 06, 2024 Labs/Diagnostic Data: Laboratory Results Test 10/06/24 08:09 10/05/24 05:21 10/02/24 08:54 White Blood Count 10.1 10^3/uL (4.4-10.8) Red Blood Count 5.12 10^6/uL (4.5-5.90) Hemoglobin 15.4 g/dL (13.5-17.5) Hematocrit 44.7 % (41.0-53.0) Mean Corpuscular Volume 87.4 fL (80.0-100.0) Mean Corpuscular Hemoglobin 30.2 pg (28.0-32.0) Mean Corpuscular Hemoglobin Concent 34.6 g/dL (32.0-36.0) Red Cell Distribution Width 12.9 % (11.8-14.3) Platelet Count 281 10^3/uL (140-450) Mean Platelet Volume 8.1 fL (6.9-10.8) Neutrophils (%) (Auto) 88.9 % (37.0-80.0) Lymphocytes (%) (Auto) 7.7 % (10.0-50.0) Monocytes (%) (Auto) 3.3 % (0.0-12.0) Eosinophils (%) (Auto) 0.1 % (0.0-7.0) Basophils (%) (Auto) 0.0 % (0.0-2.0) Neutrophils # (Auto) 8.9 10 ^3/uL (1.6-8.6) Lymphocytes # (Auto) 0.8 10 ^3/uL (0.4-5.4) Monocytes # (Auto) 0.3 10 ^3/uL (0-1.3) Eosinophils # (Auto) 0 10 ^3/uL (0-0.8) Basophils # (Auto) 0 10 ^3/uL (0-0.2) Nucleated Red Blood Cells 0.0 % Sodium Level 140 mmol/L (136-145) Potassium Level 4.1 mmol/L (3.5-5.1) Chloride Level 104 mmol/L (98-107) Carbon Dioxide Level 27 mmol/L (20-31) Anion Gap 9 (5-15) Blood Urea Nitrogen 14 mg/dL (9-23) Creatinine 0.92 mg/dL (0.700-1.30) Glomerular Filtration Rate Calc 115 mL/min (>90) BUN/Creatinine Ratio 15.2 (10.0-20.0) Serum Glucose 90 mg/dL (74-106) Calcium Level 9.8 mg/dL (8.7-10.4) Total Bilirubin 0.4 mg/dL (0.2-1.0) Aspartate Amino Transferase (AST) 14 U/L (13-40) Alanine Aminotransferase (ALT) 11 U/L (7-40) Alkaline Phosphatase 63 U/L (46-116) Total Protein 7.0 g/dL (5.7-8.2) Albumin 4.7 g/dL (3.2-4.8) Differential Total Cells Counted 100.0 (100) Neutrophils % (Manual) 50 (37.0-80.0) Band Neutrophils % (Manual) 2 Lymphocytes % (Manual) 27 (10.0-50.0) Monocytes % (Manual) 4 (0-12) Eosinophils % (Manual) 17 (0-7) Basophils % (Manual) 0 (0.0-2.0) Metamyelocytes % (manual) 0 Myelocytes % (Manual) 0 Promyelocytes % (Manual) 0 Blast Cells % (Manual) 0 Reactive Lymphocytes 0 Platelet Estimate Adequate Prothrombin Time 11.0 sec (9.3-11.8) Prothrombin Time INR 1.04 (0.9-1.15) Activated Partial Thromboplast Time 28.7 SEC (24.5-34.5) Urine Color Light-orange (Yellow) Urine Clarity Turbid (Clear) Urine pH 5.5 (5.0-9.0) Urine Specific [place] 1.027 (1.001-1.035) Urine Protein 1+ (Negative) Urine Ketones Negative (Negative) Urine Blood 3+ /uL (Negative) Urine Nitrite Negative (Negative) Urine Bilirubin Negative (Negative) Urine Urobilinogen Normal mg/dL (Negative) Urine Leukocyte Esterase Trace /uL (Negative) Urine RBC 2435 /hpf (0 - 3) Urine Microscopic WBC 16 /HPF (0-3) Urine Squamous Epithelial Cells None seen /hpf (<5) Urine Bacteria None seen /hpf (None Seen) Urine Mucus Few (None Seen) Urine Yeast (Budding) Moderate /hpf (None Seen) Urine Glucose Normal mg/dL (Normal) Other Laboratory Tests 10/06/24 08:09 Brief Hx & Hospital Course: This is a 29 year old male BIBA presenting to the ED with chief complaint of right flank pain. Patient reports that he has been experiencing right sided flank pain since this morning with associated nausea. Patient states he had experienced some hematuria about a month ago, but it self resolved. Patient denies any vomiting, dysuria, hematuria, fever, chills, or abdominal pain. He is admitted and evaluated by urologist for ureteral stone. Patient underwent successful lithotripsy with ureteral stent placement. Patient advised to follow up with the urologist in 1-2 weeks to remove the ureteral stent. Otherwise while in the hospital patient's symptoms resolved. Pain-free. Feeling better back to baseline normal status. Therefore it is felt he could be safely discharged home. I have talked with the patient during this hospitalization through aerobic interpreters/his cousin over the phone and explained to him in great detail that he needs to follow up with the Urology to remove the stent. Otherwise risks of stent blockage and ascending infection and even possibility of sepsis discussed with the him. Patient verbalized understanding of this, verbalized understanding his hospital diagnosis, procedure he had done, treatment he received, discharge medications and agree with the discharge follow-up plan of care as outlined Operations or Procedures ORDER NUMBER(s): , ACCESSION NUMBER(s): Procedure - OPERATIVE REPORT Pre-op. Diagnosis: Ureteral stone - Right, mid ureteral 6 mm stone Post-op. Diagnosis: Same as pre-op diagnosis Operation: Right ureteroscopy/pyeloscopy, laser lithotripsy Cystoscopy with right ureteral stent placement Anesthesia: General Indications: Patient with 6 mm right ureteral stone, mild hydronephrosis, and right flank pain. The indications, risks, complications, alternatives and benefits were discussed. All questions were encouraged and answered. Patient is aware of risks/complications including but not limited to infection, bleeding, persistent pain, possible ureteral injury/ureteral stricture requiring additional surgical management, urethral injury, urethral stricture and meatal stenosis. Details of Procedure: After obtaining the consent, patient was taken to OR suite and underwent general anesthesia. Preop antibiotic was given. Timeout was performed and deemed to be correct. With the patient positioned in the lithotomy, the area of the genitalia prepped and draped in usual sterile fashion. 22 F Cystoscope was used to access the urethra and bladder. A sensor tip guide wire was advanced through the scope into the right ureter all the way to the right collecting system under fluoroscopic control. 11x13 Fr 36 cm access sheet over the working wire all the way to the proximal ureter under fluoroscopy control was placed. The flexible ureteroscope was advanced through the access sheet. The stone was visualized. Now using a 200 micron laser fiber the stone was blasted into small fragments. At this point the ureteroscope was advanced into the kidney and the kidney was examined and small stone fragments were visualized and fragmented with laser. No further stones were seen in the kidney. Then Antegrade ureteroscopy was performed and the entire length of the right ureter was examined and no further stones were seen. At this point the cystoscope was advanced over the wire into the bladder. Now a 6 Fr x [address] ureteral stent was advanced under direct visualization through the right ureteral orifice into the kidney. Good proximal curl was seen in the renal pelvis under fluoroscopy. Patient was placed in supine position in the OR table. Anesthesia was reversed, patient was extubated and transferred awake and in stable conditions to recovery room. Specimens: None Complications: None Findings: Right ureteral stone fragmented Notes: 6 Fr x [address] ureteral stent - Right KUB in 2 weeks AL JONES MD Oct 05, 2024 19:36 Condition at Discharge: Stable Final Diagnosis/Problems List Renal colic pain ureteral stone status post lithotripsy with a stent placement to be removed after two weeks with the Urology office Problems List: (1) Kidney stone Status: Acute (2) Right ureteral calculus Discharge Disposition: Home Discharge Instruct/Medications Diet: Consistent carbohydrate, Cardiac 2g Na,low cholest Activity: No Restrictions, As Tolerated Follow Up/Referral: Dr. Al Jones urologist after 10 days and to call to make a follow up appointment for ureteral stent removal Medications: As prescribed Scheduled PRN Acetaminophen (Tylenol Extra Strength), 500 MG PO Q4HPRN PRN Discharge Statement: "Patient was advised to return to the ER or call 911 if any headaches, dizziness, shortness of breath, chest pain, abdominal pain, bleeding, fevers, or worsening of medical condition. Patient was counseled about treatment plan, medications, possible side effects, patientverbalized understanding. All questions were answered to the best of my ability. This discharge took greater then 30 minutes in planning, reviewing documentation, counseling the patient, and discussing with other team members." ASSESSMENT ASSESSMENT Assessment Renal colic pain ureteral stone status post lithotripsy with a stent placement to be removed after two weeks with the Urology office Date of Service: Oct 06, 2024 Billing Provider: DAKOTAH MENDEZ MD Common Visit Codes: 39867-MMA/OBS DISCH DAY >30min DAKOTAH MENDEZ MD Oct 06, 2024 13:46
== END 2024-10-06 16:22 | disposition home or self-care (01) | DRG 661 ==
LOC: EDBD 08:22 → ER 08:22 → OVERFLOW 20:50 → WEST WING 10-03 18:25
PROVIDERS: ADMIT Internal Medicine; ATTEND Internal Medicine
PROC: 0TF38ZZ Fragmentation in Right Kidney Pelvis, Via Natural or Artificial Opening Endoscopic (ICD-10-PCS; 2024-10-05)
PROC: 0TF68ZZ Fragmentation in Right Ureter, Via Natural or Artificial Opening Endoscopic (ICD-10-PCS; 2024-10-05)
PROC: 0T768DZ Dilation of Right Ureter with Intraluminal Device, Via Natural or Artificial Opening Endoscopic (ICD-10-PCS; principal; 2024-10-05 18:22)
DX: N13.6 Pyonephrosis (principal); N21.1 Calculus in urethra; Z79.899 Other long term (current) drug therapy
CPT/HCPCS: 36415; 74021; 74176; 76000; 76775; 80048; 80053; 81001; 85007; 85025; 85027; 85610; 85730; 87086; 96374; 96375; 99291; 99292; A4344; G0378; J1885; J2250; J2405; J2704

== ENCOUNTER 2024-10-17 11:45 | Emergency (ER) | payer BC ==
[~2024-10-17] VITALS: Ht 185.4 cm; Wt 90.0 kg
[~2024-10-17 11:45] MED LIST: ACET-1304 PO
[2024-10-17] MEDS ORDERED: SODIUM CHLORIDE 0.9% 1,000 ML IV ONE (12:15)
[2024-10-17] MEDS ORDERED: ONDANSETRON HCL 4 MG/2 ML VIAL IV ONE (12:15)
[2024-10-17] MEDS ORDERED: MORPHINE SULFATE 4 MG/ML SYR/VIAL IV ONE (12:15)
--- NOTE | 2024-10-17 12:20 | ED.PDOC ---
History of Present Illness HPI Comments 29-year-old male with a history of kidney stone status post ESWL and right ureteral stent insertion here by Dr. Aparicio brought in by brother requesting stent removal. Patient followed up at discharge clinic and was referred to Dr. Aparicio, however was advised by Dr. Aparicio that he would have to request referral to another urologist for stent removal, as Dr. Aparicio does not accept his insurance. According to the patient's brother, who is acting as a prosthetics assistant, they have contacted multiple providers, however no other urologist was willing to remove a stent placed by another urologist. The patient returns here today requesting stent removal. He denies any abdominal pain, does have very mild intermittent right flank pain, but denies any fever, nausea, vomiting, diarrhea, dysuria or hematuria. Chief Complaint: Pelvic Pain Time Seen by MD: 12:15 Reviewed Notes: Nurses Notes, Medications, Allergies Allergies: Coded Allergies: NO KNOWN ALLERGIES (Unverified , 10/02/24) Home Meds Active Scripts Ciprofloxacin Hcl (Cipro) 500 Mg Tab, 1 TAB PO BID for 7 Days, #14 TAB Prov:YANNA CARREON MD 10/17/24 Acetaminophen (Tylenol Extra Strength) 500 Mg Tab, 500 MG PO Q4HPRN PRN, #20 TAB Prov:DAKOTAH MENDEZ MD 10/06/24 Mode of Arrival: Ambulatory Past Medical History Past Medical History (Other): Ureteral stone Surgical History (Other): Right ureteroscopy/pyeloscopy, laser lithotripsy Cystoscopy with right ureteral stent placement Family History Family History: Reviewed,noncontributory to illness Social History Smoker: Non-Smoker Alcohol: Denies ETOH Use Drugs: Denies Drug Use Lives In: Home All Other Systems: Reviewed and Negative (Comprehensive systems review obtained and negative except for what is stated in the HPI.) Physical Exam General Appearance: No Apparent Distress HEENT: Other (Pupils and face symmetric. Moist mucous membranes.) Neck: Full Range of Motion, Normal Inspection Respiratory: Lungs Clear, No Accessory Muscle Use, No Respiratory Distress, Normal Breath Sounds Cardiovascular: No Edema, No JVD, Regular Rate/Rhythm Breast Exam: Deferred Gastrointestinal: Non Tender, Soft Genitalia: Deferred Pelvic: Deferred Rectal: Deferred Extremities: Normal inspection, Normal range of motion, Non-tender, No pedal edema Neurologic: Alert (Oriented x4), Normal Affect, Normal Mood, Other (Ambulatory) Cerebellar Function: NOT DONE Reflexes: NOT DONE Skin: Dry, Normal Color, Warm Lymphatic: NOT DONE Was a procedure done? Was a procedure done?: No Differential Dx Considerations may include: UTI, pyelonephritis, uncomplicated indwelling ureteral stent, among others X-Ray, Labs, Meds, VS Vital Signs Date Time Temp Pulse Resp B/P (MAP) Pulse Ox O2 Delivery O2 Flow Rate FiO2 10/17/24 13:22 68 18 96 Room Air 10/17/24 13:22 98.6 68 18 123/62 (82) 96 98.6 10/17/24 11:50 98.1 87 20 125/70 96 98.1 X-Ray, Labs, Meds, VS Comment 29-year-old male with a history of obstructing ureterolithiasis status post ESWL and ureter stent placement presenting requesting stent removal. Dr. Aparicio did not remove the stent, as he does not accept the patient's insurance. The patient was unable to obtain urology follow up for stent removal despite contacting multiple providers, stating no other urologist was willing to remove a stent inserted by another urologist. Vitals unremarkable Exam unremarkable Rhythm strip independently interpreted by me: Sinus rhythm, rate 87, no ectopy. I discussed the case with [facility], who requested the patient return in 2 days (Saturday10/19/24) to the ER, and that the treating ED physician contact her when the patient arrives. She can remove the stent at bedside in the ED. Patient would not require hospital admission. Patient and brother were advised regarding the plan and stated they will return at the requested time. Rx Cipro Time of 1ST Reevaluation: 12:45 Reevaluation 1ST: Unchanged Patient Education/Counseling: Diagnosis, Treatment, Need For Follow Up Family Education/Counseling: Diagnosis, Treatment, Need For Follow Up SEPSIS Sepsis Screen Date sepsis recognized/suspect: Oct 17, 2024 Time Sepsis recognized/suspect: 1151 Recent Procedure: No On Antibiotic Therapy: No Respiratory Rate >20: No Heart Rate >90: Yes Temp<36 C (96.8 F) or >38.3 C: No SBP <90 or MAP <65 mmHG: No New Acute Mental Status Change: No Is the patient on CPAP, BIPAP,: No SEPSIS EXCLUSION NOTE: Sepsis Exclusion Note: Patient presents with SIRS criteria, but the SIRS response is attributed to [ anxiety], not a suspected infection. Sepsis bundle is not initiated at this time, due to this reason. Further management will focus on the treatment of the above condition (s). Vital Signs Date Time Temp Pulse Resp B/P (MAP) Pulse Ox O2 Delivery O2 Flow Rate FiO2 10/17/24 13:22 68 18 96 Room Air 10/17/24 13:22 98.6 68 18 123/62 (82) 96 98.6 10/17/24 11:50 98.1 87 20 125/70 96 98.1 Departure 1 Departure Time of Disposition: 13:02 Impression: Primary Impression: Ureteral stent present Disposition: HOME / SELF CARE / HOMELESS Condition: Stable Additional Instructions: Follow up in ER here on Saturday10/19/24. Ask the treating ER physician to contact [facility] to remove your stent in the ER. I have prescribed antibiotics to prevent infection. Return to ER for worsening pain, fever, nausea, vomiting, bleeding, or any other concern. e-Prescriptions Ciprofloxacin Hcl (Cipro) 500 Mg Tab 1 TAB PO BID for 7 Days, #14 TAB Prov: YANNA CARREON MD 10/17/24 Discharged With: Relative Critical Care Note Critical Care Time?: No Stability Stability form required: No Heart Score Heart Score: Heart Score Response (Comments) Value History N/A 0 EKG N/A 0 Age N/A 0 Risk Factors N/A 0 Troponin N/A 0 Total 0 I personally scribed for YANNA CARREON MD ([email or web address]) on 10/17/24 at 12:20. Electronically submitted by [employer] ([email or web address]). I personally scribed for YANNA CARREON MD ([email or web address]) on 10/17/24 at 12:51. Electronically submitted by [employer] ([email or web address]). YANNA CARREON MD Oct 17, 2024 12:20
[2024-10-17] MEDS ORDERED: CIPR-173 PO (13:06)
[2024-10-17 13:22] VITALS: BP 123/62; PULSE 68; RESP 18; TEMP 98.6; O2SAT 96
== END 2024-10-17 13:24 | disposition home or self-care (01) ==
LOC: ER 11:45
DX: Z96.0 Presence of urogenital implants (principal); Z87.442 Personal history of urinary calculi; Z59.71 Insufficient health insurance coverage

== ENCOUNTER 2024-10-19 10:08 | Emergency (ER) | payer BC ==
[~2024-10-19] VITALS: Ht 167.6 cm; Wt 95.1 kg
[~2024-10-19 10:08] MED LIST changes: +CIPR-173 PO
[2024-10-19 10:11] VITALS: TEMP 98.4
--- NOTE | 2024-10-19 10:56 | ED.PDOC ---
General HPI Comments 29 year old male presents to the ED requesting his ureteral stent to be removed. Patient states he has ureteral stent placed about 2 weeks ago, was seen by Urology, ALEXANDER Schmitt yesterday and was told to come to ED today for removal and she will remove it. Patient currently has no complaints, finished his 7 day course of Cipro. Denies fever, chills, nausea, vomiting, diarrhea, headache, chest pain, shortness of breath. No other symptoms or modifying factors present at this time. Chief Complaint: Urinary Time Seen by MD: 10:45 Reviewed notes: Medications, Allergies Allergies: Coded Allergies: NO KNOWN ALLERGIES (Unverified , 10/02/24) Home Meds Active Scripts Ciprofloxacin Hcl (Cipro) 500 Mg Tab, 1 TAB PO BID for 7 Days, #14 TAB Prov:YANNA CARREON MD 10/17/24 Acetaminophen (Tylenol Extra Strength) 500 Mg Tab, 500 MG PO Q4HPRN PRN, #20 TAB Prov:DAKOTAH MENDEZ MD 10/06/24 Information Source: Patient Mode of Arrival: Ambulatory Severity: Moderate Timing: Hours Duration: Since onset Prehospital treatment: None Onset: Other Symptoms: None History of: Other (urethral stent) Location: Other Penile discharge: None Modifying factors: None associated signs and symptoms: None Past Medical History PAST MEDICAL HISTORY: Denies Surgical History: Denies all surgeries Family History Family History: Reviewed,noncontributory to illness Social History Smoker: Non-Smoker Alcohol: Denies ETOH Use Drugs: Denies Drug Use Lives In: Home Constitutional: denies: chills, diaphoresis, fatigue, fever, malaise, sweats, weakness, others EENTM: denies: blurred vision, double vision, ear bleeding, ear discharge, ear drainage, ear pain, ear ringing, eye pain, eye redness, hearing loss, mouth pain, mouth swelling, nasal discharge, nose bleeding, nose congestion, nose pain, photophobia, tearing, throat pain, throat swelling, voice changes, others Respiratory: denies: cough, hemoptysis, orthopnea, SOB at rest, shortness of breath, SOB with excertion, stridor, wheezing, others Cardiovascular: denies: chest pain, dizzy spells, diaphoresis, Dyspnea on exertion, edema, irregular heart beat, left arm pain, lightheadedness, palpitations, PND, syncope, others Gastrointestinal: denies: abdomen distended, abdominal pain, blood streaked bowels, constipated, diarrhea, dysphagia, difficulty swallowing, hematemesis, melena, nausea, poor appetite, poor fluid intake, rectal bleeding, rectal pain, vomiting, others Genitourinary: reports: others (urethral stent); denies: burning, dysuria, flank pain, frequency, hematuria, incontinence, penile discharge, penile sore, pain, testicle pain, testicle swelling, urgency Neurological: denies: dizziness, fainting, headache, left sided numbness, left sided weakness, numbness, paresthesia, pre-existing deficit, right sided numbness, right sided weakness, seizure, speech problems, tingling, tremors, weakness, others Musculoskeletal: denies: back pain, gout, joint pain, joint swelling, muscle pain, muscle stiffness, neck pain, others Integumetry: denies: bruises, change in color, change in hair/nails, dryness, laceration, lesions, lumps, rash, wounds, others Allergic/Immunocompromised: denies: Difficulty Healing, Frequent Infections, Hives, Itching, others Hematologic/Lymphatic: denies: anemia, blood clots, easy bleeding, easy bruising, swollen glands, others Endocrine: denies: excessive hunger, excessive sweating, excessive thirst, excessive urination, flushing, intolerance to cold, intolerance to heat, unexplained weight gain, unexplained weight loss, others Psychiatric: denies: anxiety, bipolar disorder, depression, hopeless, panic disorder, schizophrenia, sleepless, suicidal, others All Other Systems: Reviewed and Negative Physical Exam General Appearance: No Apparent Distress, Normal HEENT: Normal ENT Inspection, Pharynx Normal, TMs Normal Neck: Full Range of Motion, Non-Tender, Normal, Normal Inspection Respiratory: Chest Non-Tender, Lungs Clear, No Accessory Muscle Use, No Respiratory Distress, Normal Breath Sounds Cardiovascular: No Edema, No JVD, No Murmur, No Gallop, Normal Peripheral Pulses, Regular Rate/Rhythm Breast Exam: Deferred Gastrointestinal: No Organomegaly, Non Tender, No Pulsatile Mass, Normal Bowel Sounds, Soft, Other (Right flank without significant tenderness to palpation) Genitalia: Deferred Pelvic: Deferred Rectal: Deferred Extremities: No calf tenderness, Normal capillary refill, Normal inspection, Normal range of motion, Non-tender, No pedal edema Musculoskeletal : Apperance: Normal Neurologic: Alert, special deputy sheriff II-XII nml as Tested, No Motor Deficits, Normal Affect, Normal Mood, No Sensory Deficits Cerebellar Function: Normal Reflexes: Normal Skin: Dry, Normal Color, Warm Lymphatic: No Adenopathy Was a procedure done? Was a procedure done?: No Differential Diagnosis Kidney stone (Female): AAA, Appendicitis, Bowel obstruction, Pancreatitis, Pyelonephritis, Renal failure, Urinary obstruction, Urolithiasis X-Ray, Labs, Meds, VS Vital Signs Date Time Temp Pulse Resp B/P (MAP) Pulse Ox O2 Delivery O2 Flow Rate FiO2 10/19/24 12:19 Room Air* 0 21 10/19/24 10:11 98.4 64 16 121/59 98 98.4 X-Ray, Labs, Meds, VS Comment 29-year-old male here today requesting ureteral stent removal with paperwork indicating that it would be removed today by Urology in the ER. Vital signs stable, afebrile. Physical exam without any acute findings. Urology was consulted and [facility] UMBRELLA [facility]ENDER presented to bedside and the stent was removed without complication. Patient tolerated the procedure well. Ambulating in the ER without any distress and requesting to be discharged home. Patient understands that he must follow up with his own urologist outpatient for further management and care. Provided the patient with information on how to do so. I answered the patient's questions as I myself speak [place] and he was very grateful for this. Patient was discharged in stable condition with strict return precautions for fevers, flank pain, rash, nausea/vomiting, dysuria, hematuria, or any other new or concerning symptoms. Time of 1ST Reevaluation: 11:15 Reevaluation 1ST: Unchanged Patient Education/Counseling: Diagnosis, Treatment, Prognosis, Need For Follow Up Family Education/Counseling: No Family Present SEPSIS Sepsis Screen Date sepsis recognized/suspect: Oct 19, 2024 Time Sepsis recognized/suspect: 1011 Recent Procedure: No On Antibiotic Therapy: No Respiratory Rate >20: No Heart Rate >90: No Temp<36 C (96.8 F) or >38.3 C: No SBP <90 or MAP <65 mmHG: No New Acute Mental Status Change: No Is the patient on CPAP, BIPAP,: No Vital Signs Date Time Temp Pulse Resp B/P (MAP) Pulse Ox O2 Delivery O2 Flow Rate FiO2 10/19/24 12:19 Room Air* 0 21 10/19/24 10:11 98.4 64 16 121/59 98 98.4 Departure 1 Departure Time of Disposition: 13:13 Impression: Primary Impression: Encounter for removal of ureteral stent Additional Impression: History of kidney stones Disposition: HOME / SELF CARE / HOMELESS Condition: Stable Discharged With: Self, Relative Critical Care Note Critical Care Time?: No Stability Stability form required: No Heart Score Heart Score: Heart Score Response (Comments) Value History N/A 0 EKG N/A 0 Age N/A 0 Risk Factors N/A 0 Troponin N/A 0 Total 0 I personally scribed for ERASTO BURGER MD ([email or web address]) on 10/19/24 at 10:56. Electronically submitted by Annette Garcia ([email or web address]). ERASTO BURGER MD Oct 19, 2024 10:56
--- NOTE | 2024-10-19 12:14 | DVHINCON2 ---
Date of service: Oct 19, 2024 Referring Physician LAKESHIA KATE Reason for Consultation stent removal History of Present Illness History Source: Patient HPI 29-year-old male with a history of kidney stone status post ESWL for 7 mm right midureter stone and right ureteral stent insertion here by Dr. Aparicio 09/01/24 he was brought in by brother requesting stent removal. Patient followed up at [facility] and was referred to Dr. Aparicio, however was advised by Dr. Aparicio that he would have to request referral to another urologist for stent removal, as Dr. Aparicio does not accept his insurance. According to the patient's brother, who is acting as a envelope press operator, they have contacted multiple providers, however no other urologist was willing to remove a stent placed by another urologist. The patient returns here today requesting stent removal. He denies any abdominal pain, does have very mild intermittent right flank pain, but denies any fever, nausea, vomiting, diarrhea, dysuria or hematuria. Home Meds Active Scripts Ciprofloxacin Hcl (Cipro) 500 Mg Tab, 1 TAB PO BID for 7 Days, #14 TAB Prov:YANNA CARREON MD 10/17/24 Acetaminophen (Tylenol Extra Strength) 500 Mg Tab, 500 MG PO Q4HPRN PRN, #20 TAB Prov:DAKOTAH MENDEZ MD 10/06/24 Review of Systems Constitutional: No symptom reported Ears, Nose, & Throat: No symptom reported Eyes: No symptom reported Pulmonary/Respiratory: No symptom reported Cardiovascular: No symptom reported Gastrointestinal: No symptom reported Genitourinary: No symptom reported Musculoskeletal: No symptom reported Skin: No symptom reported Psychiatric: No symptom reported Endocrine: No symptom reported Hemotologic/Lymphatic: No symptom reported H&P Exam Vital Signs Vital Signs Date Time Temp Pulse Resp B/P (MAP) Pulse Ox O2 Delivery O2 Flow Rate FiO2 10/19/24 10:11 98.4 64 16 121/59 98 98.4 General Appeara: Well developed, Well nourished, Normal Appearance Neuro/Mental St: Alert, Oriented Appearance: Appropriate appearance, Appropriate insight Eye contact/ Speech: Cooperative, Good eye contact, Normal speech Skin Exam: Normal inspection, Normal color, Warm/dry Assessment/Plan Problem List: (1) Kidney stone (2) UTI (urinary tract infection) (3) Right ureteral calculus (4) Ureteral stent present Plan bedside stent retrieval done ER BED 10. f/u urology Plan discussed with: Patient, Other ALEJANDRA RODNEY NP Oct 19, 2024 12:14
--- NOTE | 2024-10-19 12:20 | DVHNC2 ---
Procedure - Bedside Ureteral stent retrieval indication: removal of indwelling ureteral stent pt was administered lidocaine jelly instilled into the urethra x 5 mins for local anesthesia. Pt was placed in the supine position. the genitalia was prepped in the usual sterile fashion. A disposable flexible cystoscope was introduced atraumatically into the urethra and advanced into the bladder. The ureteral stent was visualized in good position. A grasper was was passed through the working channel of the cystoscope and used to grasp the stent and removed intact without difficulty. Complications: none pt tolerated well. no immediate complications. no blood loss. cipro 500 mg po bid x 3 days f/u urology for surveillance imaging CPT 69521 Z46.6 T19.9xxa N13.2 ALEJANDRA RODNEY NP Oct 19, 2024 12:20
[2024-10-19 13:24] VITALS: BP 129/88; PULSE 66; RESP 14; O2SAT 96
[2024-10-19] MEDS ORDERED: CIPR500T4 PO (13:43)
== END 2024-10-19 13:53 | disposition home or self-care (01) ==
LOC: ER 10:08
DX: Z46.6 Encounter for fitting and adjustment of urinary device (principal); Z87.442 Personal history of urinary calculi; Z79.899 Other long term (current) drug therapy

== ENCOUNTER 2024-12-28 10:57 | Emergency (ER) | payer BC ==
[~2024-12-28] VITALS: Ht 182.9 cm; Wt 97.0 kg
[~2024-12-28 10:57] MED LIST changes: +CIPR500T4 PO
--- NOTE | 2024-12-28 11:52 | ED.PDOC ---
History of Present Illness HPI Comments 29M who is romanian speaking presents to the ER w/ prior SHx of Kidney Stone removal x2 months ago and the c/c of flank pain. Pt reports on having had a 7mm kidney stone to the right flank and being surgically removed. Pt states on having severe right flank pain for 2 months and is requesting a CT scan to see if there are more kidney stones causing the pain. Denies any other symptoms at this time. Denies chills, fever, N/V/D, SOB, CP. Denies any other associated symptom's, modifiers, or recent injuries or sick contact at this time. Chief Complaint: Flank Pain Time Seen by MD: 11:50 Reviewed Notes: Nurses Notes, Medications, Allergies Allergies: Coded Allergies: NO KNOWN ALLERGIES (Unverified , 10/02/24) Home Meds Active Scripts Ciprofloxacin Hcl (Ciprofloxacin Hcl) 500 Mg Tab, 1 TAB PO BID for 3 Days, #6 TAB Prov:ERASTO BURGER MD 10/19/24 Ciprofloxacin Hcl (Cipro) 500 Mg Tab, 1 TAB PO BID for 7 Days, #14 TAB Prov:YANNA CARREON MD 10/17/24 Acetaminophen (Tylenol Extra Strength) 500 Mg Tab, 500 MG PO Q4HPRN PRN, #20 TAB Prov:DAKOTAH MENDEZ MD 10/06/24 Information Source: Patient Mode of Arrival: Ambulatory Severity: Moderate Timing: Months Duration: Since onset Prehospital treatment: None Past Medical History PAST MEDICAL HISTORY: Denies Surgical History (Other): Kidney Stone Removal Sx x2 months ago Family History Family History: Reviewed,noncontributory to illness, Unknown Social History Smoker: Non-Smoker Alcohol: Denies ETOH Use Drugs: Denies Drug Use Lives In: Home Constitutional: denies: chills, diaphoresis, fatigue, fever, malaise, sweats, weakness, others EENTM: denies: blurred vision, double vision, ear bleeding, ear discharge, ear drainage, ear pain, ear ringing, eye pain, eye redness, hearing loss, mouth pain, mouth swelling, nasal discharge, nose bleeding, nose congestion, nose pain, photophobia, tearing, throat pain, throat swelling, voice changes, others Respiratory: denies: cough, hemoptysis, orthopnea, SOB at rest, shortness of breath, SOB with excertion, stridor, wheezing, others Cardiovascular: denies: chest pain, dizzy spells, diaphoresis, Dyspnea on exertion, edema, irregular heart beat, left arm pain, lightheadedness, palpitations, PND, syncope, others Gastrointestinal: denies: abdomen distended, abdominal pain, blood streaked bowels, constipated, diarrhea, dysphagia, difficulty swallowing, hematemesis, melena, nausea, poor appetite, poor fluid intake, rectal bleeding, rectal pain, vomiting, others Genitourinary: reports: flank pain (right sided); denies: burning, dysuria, frequency, hematuria, incontinence, penile discharge, penile sore, pain, testicle pain, testicle swelling, urgency, others Neurological: denies: dizziness, fainting, headache, left sided numbness, left sided weakness, numbness, paresthesia, pre-existing deficit, right sided numbness, right sided weakness, seizure, speech problems, tingling, tremors, weakness, others Musculoskeletal: denies: back pain, gout, joint pain, joint swelling, muscle pain, muscle stiffness, neck pain, others Integumetry: denies: bruises, change in color, change in hair/nails, dryness, laceration, lesions, lumps, rash, wounds, others Allergic/Immunocompromised: denies: Difficulty Healing, Frequent Infections, Hives, Itching, others Hematologic/Lymphatic: denies: anemia, blood clots, easy bleeding, easy bruising, swollen glands, others Endocrine: denies: excessive hunger, excessive sweating, excessive thirst, excessive urination, flushing, intolerance to cold, intolerance to heat, unexplained weight gain, unexplained weight loss, others Psychiatric: denies: anxiety, bipolar disorder, depression, hopeless, panic disorder, schizophrenia, sleepless, suicidal, others All Other Systems: Reviewed and Negative Physical Exam General Appearance: Moderate Distress, Normal HEENT: Normal ENT Inspection, Pharynx Normal, TMs Normal Neck: Full Range of Motion, Non-Tender, Normal, Normal Inspection Respiratory: Chest Non-Tender, Lungs Clear, No Accessory Muscle Use, No Respiratory Distress, Normal Breath Sounds Cardiovascular: No Edema, No JVD, No Murmur, No Gallop, Normal Peripheral Pulses, Regular Rate/Rhythm Breast Exam: Deferred Gastrointestinal: No Organomegaly, Non Tender, No Pulsatile Mass, Normal Bowel Sounds, Soft Genitalia: Deferred Pelvic: Deferred Rectal: Deferred Extremities: No calf tenderness, Normal capillary refill, Normal inspection, Normal range of motion, Non-tender, No pedal edema Musculoskeletal : Apperance: Normal Neurologic: Alert, ship boat or barge mate II-XII nml as Tested, No Motor Deficits, Normal Affect, Normal Mood, No Sensory Deficits Cerebellar Function: Normal Reflexes: Normal Skin: Dry, Normal Color, Warm Peripheral Pulses: 3+ Radial (R), 3+ Radial (L) Lymphatic: No Adenopathy Was a procedure done? Was a procedure done?: No Differential Dx Considerations may include: Kidney stone Electrolyte imbalance X-Ray, Labs, Meds, VS Vital Signs Date Time Temp Pulse Resp B/P (MAP) Pulse Ox O2 Delivery O2 Flow Rate FiO2 12/28/24 14:47 97.8 83 18 135/69 (91) 95 97.8 12/28/24 14:47 83 19 95 Room Air 12/28/24 12:09 81 19 97 Room Air 12/28/24 12:09 97.6 81 19 136/84 (101) 97 97.6 12/28/24 10:59 98.0 79 16 146/91 99 98.0 Current Medications Medications (Trade) Dose Ordered Sig/Brayan Route Start Time Stop Time Status Last Admin Ketorolac Tromethamine (Toradol Injection) 60 mg ONCE ONCE IM 12/28/24 11:45 12/28/24 11:46 DC 12/28/24 12:03 Tamsulosin HCl (Flomax) 0.4 mg ONCE ONCE PO 12/28/24 14:00 12/28/24 14:01 DC 12/28/24 14:57 Sodium Chloride 1,000 ml @ 1,000 mls/hr Q1H ONCE IV 12/28/24 14:00 12/28/24 14:59 DC 12/28/24 14:44 Patient alert pain Complaining of flank pain. Vitals stable. Answering all questions. Abdomen is soft nontender. No sign of distress. CT of the abdomen reviewed does show kidney stone. Nonobstructing pain Establish intravenous access. Was given fluids. Was given pain medication. Was given Flomax. Explained to the patient. Was told to follow up with his primary care physician. Was told to come back if there is any problem. Time of 1ST Reevaluation: 12:20 Reevaluation 1ST: Unchanged Time of 2ND Reevaluation: 16:14 Reevaluation 2ND: Improved Patient Education/Counseling: Diagnosis, Treatment, Prognosis Family Education/Counseling: No Family Present SEPSIS Sepsis Screen Date sepsis recognized/suspect: Dec 28, 2024 Time Sepsis recognized/suspect: 1102 Recent Procedure: No On Antibiotic Therapy: No Respiratory Rate >20: No Heart Rate >90: No Temp<36 C (96.8 F) or >38.3 C: No SBP <90 or MAP <65 mmHG: No New Acute Mental Status Change: No Is the patient on CPAP, BIPAP,: No Physician Orders Urinalysis (12/28/24 11:42) Ct Ab Pel Wo Con-No Oral Or Iv (12/28/24 11:42) Vital Signs Date Time Temp Pulse Resp B/P (MAP) Pulse Ox O2 Delivery O2 Flow Rate FiO2 12/28/24 14:47 97.8 83 18 135/69 (91) 95 97.8 12/28/24 14:47 83 19 95 Room Air 12/28/24 12:09 81 19 97 Room Air 12/28/24 12:09 97.6 81 19 136/84 (101) 97 97.6 12/28/24 10:59 98.0 79 16 146/91 99 98.0 Medications Medications Dose Ordered Sig/Brayan Route Start Time Stop Time Status Last Admin Dose Admin Ketorolac Tromethamine 60 mg ONCE ONCE IM 12/28/24 11:45 12/28/24 11:46 DC 12/28/24 12:03 Sodium Chloride 1,000 ml @ 1,000 mls/hr Q1H ONCE IV 12/28/24 14:00 12/28/24 14:59 DC 12/28/24 14:44 Tamsulosin HCl 0.4 mg ONCE ONCE PO 12/28/24 14:00 12/28/24 14:01 DC 12/28/24 14:57 Departure 1 Departure Time of Disposition: 16:15 Impression: Primary Impression: Right ureteral calculus Disposition: 01 HOME / SELF CARE / HOMELESS Condition: Good Discharged With: Self Critical Care Note Critical Care Time?: No Stability Stability form required: No Heart Score Heart Score: Heart Score Response (Comments) Value History N/A 0 EKG N/A 0 Age N/A 0 Risk Factors N/A 0 Troponin N/A 0 Total 0 I personally scribed for SUMAN PEREZ MD ([email or web address]) on 12/28/24 at 11:52. Electronically submitted by Micky Mcmanus ([email or web address]). SUMAN PEREZ MD Dec 28, 2024 11:52
[2024-12-28] MEDS: KETOROLAC TROMETH 60MG/2ML VIAL IM ONE (12:03)
--- NOTE | 2024-12-28 13:39 | DVH ---
Exam: CT CT AB PEL WO CON-NO ORAL OR IV History: stone Comparison Study: CT CT AB PEL WO CON-NO ORAL OR IV on DOS: 10/02/24 TECHNIQUE: Multidetector CT of the abdomen AND PELVIS without IV contrast. Axial, coronal and sagitta l multiplanar reformats were obtained from the axial data set by the technologist. Radiation Dose Information: CT Dose: CTDI volume is 11.98 mGy. Dose-length product is 3.92 mGy*cm FINDINGS: The lung bases are clear. Partially visualized heart is unremarkable. Liver, spleen, gallbladder, pancreas and adrenal glands are unremarkable. Nonobstructing right renal lower pole calculi measuring up to 5 mm. No [place] nephrosis bilaterally. U reters and urinary bladder are unremarkable. Prostate measures 3.1 x 4 x 4.5 cm. Mild gastric wall thickening. The small bowel loops unremarkable. Appendix is unremarkable. Large bow el is unremarkable. Small to moderate Amount of fecal material within the colon. No evidence of intraperitoneal free air or free fluid. No evidence of aortic aneurysm. Shotty mesenteric lymph nodes. The soft tissues are unremarkable. No evidence of acute osseous abnormalities. IMPRESSION: Mild gastric wall thickening which may be due to inadequate distention with mild gastritis not exclud ed. Nonobstructing right renal calculi measuring up to 5 mm.
[2024-12-28] MEDS: SODIUM CHLORIDE 0.9% 1,000 ML IV ONE (14:44)
[2024-12-28 14:47] VITALS: BP 135/69; PULSE 83; RESP 19; TEMP 97.8; O2SAT 95
[2024-12-28] MEDS: TAMSULOSIN HYDROCHLORIDE 0.4 MG CAP PO ONE (14:57)
== END 2024-12-28 17:01 | disposition home or self-care (01) ==
LOC: ER 10:57
DX: N20.2 Calculus of kidney with calculus of ureter (principal); Z87.442 Personal history of urinary calculi; Z79.899 Other long term (current) drug therapy
CPT/HCPCS: 74176; 96360; 96372; 99285; J1885; J7030